=== PATIENT | female | born 1975 | race Asian ===

== ENCOUNTER → 2017-01-06 | Outpatient (CLI) | payer BC | END | disposition home or self-care (01) | LOC: C.PAPS 09:10 | PROVIDERS: ATTEND Obstetrics & Gynecology | DX: Z01.411 Encounter for gynecological examination (general) (routine) with abnormal findings (principal); R87.610 Atypical squamous cells of undetermined significance on cytologic smear of cervix (ASC-US) ==

== ENCOUNTER → 2017-01-06 | Outpatient (CLI) | payer BC, OTHER ==
[2017-01-06 17:52] LABS: PREG INTERNAL NEGATIVE QC NEG CLEAR BACKGROUND; PREG INTERNAL POSITIVE QC POS CONTROL LINE
== END | disposition home or self-care (01) ==
LOC: C.LABSPEC 11:46
PROVIDERS: ATTEND Obstetrics & Gynecology
DX: N91.5 Oligomenorrhea, unspecified (principal); E28.2 Polycystic ovarian syndrome

== ENCOUNTER → 2018-01-11 | Outpatient (CLI) | payer OTHER | END | disposition home or self-care (01) | LOC: C.PAPS 16:51 | PROVIDERS: ATTEND Obstetrics & Gynecology | DX: Z01.419 Encounter for gynecological examination (general) (routine) without abnormal findings (principal) ==

== ENCOUNTER 2024-05-18 10:37 | Inpatient (IN) ==
[2024-05-18 12:02] LABS: Basophils # (auto) 0.03 K/uL (0.00-0.20); Basophils % (auto) 0.5 %; Eosinophils # (auto) 0.05 K/uL (0.00-0.50); Eosinophils % (auto) 0.8 %; Hematocrit (blood only) 35.6 % (37.0-47.0); Hemoglobin 12.1 g/dl (12.0-16.0); Immature Granulocytes # (auto) 0.02 K/uL (0.01-0.20); Immature Granulocytes % (auto) 0.3 %; Lymphocytes # (auto) 1.61 K/uL (1.20-3.40); Lymphocytes % (auto) 24.2 %; Mean Corpuscular Hemoglobin 28.7 pg (25.0-34.0); Mean Corpuscular Volume 84.4 fL (80.0-100.0); Mean Platelet Volume 10.7 fL (9.4-12.4); Monocytes # (auto) 0.33 K/uL (0.11-0.59); Neutrophils # (auto) 4.62 K/uL (1.40-6.50); Neutrophils % (auto) 69.2 %; Platelet Count 298 K/uL (130-400); RDW Standard Deviation 36.2 fL (36.4-46.3); Red Blood Count 4.22 M/uL (4.20-5.40); White Blood Count 6.66 K/ul (4.8-10.8)
[2024-05-18 12:22] LABS: Albumin Globulin Ratio 1.3 (0.9-2); Albumin Level 4.3 gm/dl (3.4-5.0); BUN Creatinine Ratio 23.6 (10-20); Bilirubin,Total 0.5 mg/dl (0.2-1.0); Calcium 9.5 mg/dl (8.6-10.3); Creatinine Clr Calc Pharmacy 111.5 ml/min; Est GFR (African American) 130.4 ml/min; Est GFR (Non-African American) 112.5 ml/min; Globulin 3.3 gm/dl (2.5-4.0); Potassium 4.1 mmol/L (3.5-5.1); Total Protein 7.6 gm/dl (6.0-8.3)
[2024-05-18 12:23] LABS: Prothrombin Time 10.9 Seconds (9.0-12.0)
--- NOTE | 2024-05-18 13:21 | Ultrasound Report ---
US venous doppler LE RT CLINICAL HISTORY: Leg deep vein thrombosis (DVT) suspected TECHNIQUE: Right lower extremity real-time compression venous ultrasound with Color Doppler imaging. Utilizing real-time ultrasonic imaging multiple real time high-resolution ultrasonic images with comp ression and noncompression maneuvers of the deep venous system in addition to color doppler imaging w ere performed from the common femoral vein through the proximal calf veins. COMPARISON: None available at the time of this dictation. FINDINGS/IMPRESSION: Currently there is normal compressibility of the deep venous system from the common femoral vein thro ugh the proximal calf veins. No superficial venous thrombosis is identified. ACT 112: Negative or not required by law. Electronically signed by: Torres Malik M.D. 05/18/2024 1:19 PM
[2024-05-18] MEDS: OPTIRAY 320 125ml IV ONE (13:50)
--- NOTE | 2024-05-18 14:18 | CT Scan Report ---
CT ANGIOGRAM OF THE CHEST CLINICAL HISTORY: Dyspnea. Calf pain. Recent surgery. Clinical concern for pulmonary embolus. COMPARISON STUDY: Chest x-ray dated 01/04/2022. Chest CT dated 12/14/2019 TECHNIQUE: Following the IV administration of 112 cc of Optiray 320, CT angiogram of the chest was pe rformed from the upper abdomen to the thoracic inlet utilizing the pulmonary embolus protocol. Images are reviewed in the axial, sagittal, and coronal planes. 3-D MIPS images are created and assessed. I V contrast was administered without complication. A dose lowering technique was utilized adhering to the principles of ALARA. CT DOSE: 750.02 mGy.cm FINDINGS: Thyroid: Imaged portions of the thyroid gland are normal in size and attenuation. Thoracic aorta: The thoracic aorta is normal in caliber and demonstrates standard 3-vessel arch anato my. No dissection is seen. Pulmonary vasculature: The pulmonary trunk is normal in caliber. There is a subsegmental pulmonary em bolus within a branch of the right middle lobe pulmonary artery. This is best seen on image #97. Ther e is also segmental and subsegmental pulmonary embolus with a branch of the right upper lobe pulmonar y artery seen on image #122. Question a small pulmonary embolus versus artifact within a segmental br anch of the left lower lobe pulmonary artery on image #78. The central pulmonary vessels are clear. Heart: The heart is normal in size and without pericardial effusion. Lungs and pleural spaces: There are trace pleural effusions. No airspace consolidation is seen typica l for pneumonia. The trachea and central airways are clear. Mediastinum: There is no mediastinal lymphadenopathy. Tami: Clear. Axillae: There is no axillary lymphadenopathy. Upper abdomen: Partially visualized upper abdominal viscera is within normal limits. Skeletal structures: No lytic or blastic bony lesions are seen. IMPRESSION: 1. Segmental and subsegmental pulmonary emboli are seen within branches of the right upper and right middle lobe pulmonary arteries. There may also be a small peripheral pulmonary embolus within the lef t lower lobe pulmonary artery. 2. Trace pleural effusions. 3. Additional findings as above. ACT 112: Negative or not required by law. Electronically signed by: Juan R Kinciad M.D. 05/18/2024 2:16 PM
[2024-05-18] MEDS: GLYCERIN ADULT 12 SUPP/BOX SUPP PR ONE (14:25)
[2024-05-18] MEDS: SODIUM CHLORIDE 0.9% 1,000 ML IV SCH (14:29)
[2024-05-18 15:20] LABS: Troponin I High Sensitivity 5.1 pg/ml (0-14)
--- NOTE | 2024-05-18 16:29 | Emergency Department Note ---
Impression & Plan ARANA (dyspnea on exertion), Right calf pain, Pulmonary embolism ED Provider Note ED Provider Note NAME: ROBERT HENRY AGE:48 SEX: Female : 1975 ARRIVES VIA: Private INFORMANT: Patient ED PROVIDER(s): Kori Egan DO CHIEF COMPLAINT: Calf pain HPI: This is a 48-year-old female presents emerged part due to concern for 2 to 3 days of calf pain. Patient postop from a surgery for endometriosis on Tuesday. She states she did call the office due to concern and was told to come in here for additional evaluation. She also noticed low-grade fever, increased shortness of breath with exertion and slight chest tightness. She denies nausea or vomiting, drainage or bleeding from her wounds, or difficulty urinating. She states she has been constipated additionally and has taken several [id number] things for this. She denies any leg swelling. She states her right calf is worse than the left which no longer hurts. PAST MEDICAL HISTORY:See Below PAST SURGICAL HISTORY:See Below FAMILY HISTORY:See Below SOCIAL HISTORY:See Below HOME MEDICATIONS:See Below ALLERGIES:See Below VITALS:See Below PHYSICAL EXAMINATION: GENERAL: alert, well appearing, well nourished, no distress, non-toxic EYE EXAM: normal conjunctiva, PERRL and EOM's grossly intact OROPHARYNX: no exudate, no erythema, lips, buccal mucosa, and tongue normal and mucous membranes are moist NECK: supple, no nuchal rigidity, no adenopathy, non-tender LUNGS: Clear to auscultation. Normal chest wall mechanics, no w/r/r HEART: no murmurs, S1 normal and S2 normal ABDOMEN: abdomen soft, normo-active bowel sounds, no masses, no rebound or guarding. Tenderness with palpation generally, 3 incisions well-appearing, dressing was removed off of two, the infraumbilical dressing left intact SKIN: no rashes, petechiae, orbruising UPPER EXTREMITIES: upper extremities are grossly normal. FROM, nml pulses b/l. LOWER EXTREMITIES: No pitting edema. FROM, nml pulses b/l. No palpable mass or tenderness. NEURO EXAM: Normal sensorium, cranial nerves II-XII grossly intact, normal speech, no facial droop,nogross weakness of arms, no gross weakness of legs. Gross sensation intact. No ataxia. Vital Signs: reviewed and remarkable Differential Diagnosis: DVT, PE, constipation, dehydration, electrolyte abnormality, medication ADR, lymphedema, muscle strain, sprain, as well as others were considered MEDICAL DECISION MAKING: This is a 48-year-old female who presents emergency department due to concern for calf pain. Patient was surgery on Tuesday at an outside facility. She was afebrile vital signs stable. Labs drawn and sent, IV established, EKG performed at bedside interpreted me and patient monitored on telemetry. She was initially sent for an ultrasound to rule out DVT. This was negative. Upon further discussion with the patient she admits to shortness of breath over the last several days also particularly with exertion and intermittent sense of chest tightness. She is also been struggling with constipation and this initial postop period. A glycerin suppository was added and patient was sent for CT angiography of the chest to rule out PE, unfortunately this revealed multiple bilateral PEs. Patient was not overtly hypoxic, no respiratory distress, not tachycardic. Troponin and EKG added and were reassuring. I did contact the patient's gynecologic minimally invasive surgeon and speak with him directly regarding these initial findings/complications. He feels risk in the immediate postop period is minimal and is in agreement with plan for initiation of anticoagulation. Case discussed with hospitalist team for additional evaluation and management. First dose of Lovenox ordered on the patient. Consultation(s): 1532: Discussed with Dr. Stein, manager operating [facility], through [facility]. He feels minimal risk with initiation of anticoagulation. States surgery was robotic with bilateral salpingectomy and left oophorectomy with removal of an endometrioma. He has no preference in the immediate postop period for anticoagulation. He states he can be contacted via his cell phone with any questions at [phone]. 1635: Discussed with Dr. Esquivel, [facility] hospitalist team for additional evaluation and management. ER Treatment Provided: See below Diagnostics Interpreted By Me: -ECG: Normal sinus at 75, normal axis, normal intervals, isolated inverted T wave in lead III, no other acute ischemic change -Cardiac Monitoring: An order was placed for continuous cardiac monitoring. The monitor shows a rate of 75 with normal sinus rhythm. -Laboratory studies: As stated above and show below. -Imaging studies: US LE: no dvt Triage Nursing Note Reviewed Prior/Outside Records Reviewed Past Med/Surg History Problem List (Updated 05/18/24 @ 17:48 by Tisha Esquivel MD) Constipation Pulmonary embolism (Acute) Right calf pain (Acute) ARANA (dyspnea on exertion) (Acute) HTN (hypertension) Sinus infection Left elbow tendinitis Trigger ring finger of left hand LFTs abnormal GERD (gastroesophageal reflux disease) Encounter for health maintenance examination Anxiety (Acute) Low back pain Right carpal tunnel syndrome (Acute) Polycystic ovarian syndrome (Acute) Isolated lactose deficiency (Acute) Insulin resistance syndrome (Acute) Hyperlipidemia (Acute) Allergic sinusitis Cervical rib (Acute) Joint stiffness of spine (Acute) Neck pain (Acute) Rectal polyp (Acute) Spondylolisthesis, acquired (Acute) Medical History Fluctuating blood pressure Insect bite Sebaceous cyst of left axilla Situational stress Sinusitis, maxillary, chronic Sinus headache Digestive problems Varicella Vulvar abscess 09/14/18 Oligomenorrhea 01/06/17 ARANA (dyspnea on exertion) Chest tightness Chest pain Surgical History H/O endoscopy H/O colonoscopy H/O oral surgery Family History Aunt Breast cancer Paternal Ovarian cancer Maternal Sister Endometriosis H/O: hysterectomy adenomyosis, fibroids Father Coronary heart disease Heart disease Lung disease Lung cancer Grandfather (Maternal) Myocardial infarction Mother Stroke Myocardial infarction covid related Other Diabetes Hypercholesterolemia Hypertension Denies family history of Colon cancer Prostate cancer Social History Smoking Status: Never smoker Do You Dip or Chew Tobacco: No; Hx Alcohol Use: Yes Alcohol Intake Frequency Comment: Once a week. 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 Feels Safe at Home: Yes Dental Care, Regularly: Yes Physical Activity Frequency: 3-4 Times per Week Physical Activity Frequency Comment: Aerobic conditioning, strength training, and stretching/oga/pilates Seatbelt Use: always Sunscreen Use: No Sexual Activity: has been sexually active within the last 12 months Assistive Devices: Glasses Allergies Allergies Allergy/AdvReac Type Severity Reaction Status Date / Time ragweed pollen Allergy Mild Unknown Verified 05/18/24 13:13 house dust Allergy Unknown Verified 05/18/24 13:13 nettle Allergy Unknown Verified 05/18/24 13:13 No Known Drug Allergies Allergy Unknown Verified 05/18/24 13:13 Home Meds Home Medications Medication Instructions Recorded Confirmed acetaminophen 500 mg tablet 1,000 mg PO Q8 PRN .Moderate pain 03/27/24 05/18/24 (Tylenol Extra Strength) lidocaine 4 % topical patch 1 patch topical DAILY PRN Pain 03/27/24 05/18/24 omeprazole 40 mg capsule,delayed 40 mg PO DAILY Acid Reflux 03/27/24 05/18/24 release famotidine 40 mg tablet 40 mg PO HS PRN .heartburn 05/18/24 05/18/24 meloxicam 15 mg tablet 15 mg PO DAILY 05/18/24 05/18/24 ondansetron HCl 4 mg tablet 4 mg PO Q8 PRN Nausea 05/18/24 05/18/24 sennosides 8.6 mg-docusate sodium 1 tab-cap PO BID 05/18/24 05/18/24 50 mg capsule Previous Rx's Medication Instructions Recorded metformin 500 mg tablet,extended 1,000 mg (2 x 500 mg) PO DAILY #60 01/05/24 release 24 hr tabs amlodipine 2.5 mg tablet 2.5 mg PO DAILY #90 tabs 01/10/24 norethindrone acetate 5 mg tablet 5 mg PO DAILY #30 tabs 05/04/24 Results & Data (ED) Vital Signs Vital Signs - 24 hr 05/18/24 11:07 05/18/24 14:00 05/18/24 15:27 Temperature 36.4 C L Temperature Source Temporal Artery Scan Pulse Rate 68 67 Pulse Rate [Apical] 67 Pulse Rate from SpO2 Sensor 67 Respiratory Rate 16 18 19 Respiratory Effort / Characteristics Non-Labored Non-Labored Respiratory Depth Normal Normal Blood Pressure 173/99 H 178/95 H Blood Pressure [Right Arm] 173/95 H Blood Pressure Mean 123 122 Blood Pressure Mean [Right Arm] 121 Pulse Oximetry 100 98 98 Oxygen Delivery Method Room Air Room Air Sepsis Recent Fever Within 48 Hours No Sepsis New/Unexplained Change in Mental Status No Sepsis Action Taken by Nursing No Action Required 05/18/24 15:36 05/18/24 16:00 05/18/24 16:12 Temperature Temperature Source Pulse Rate 67 66 63 Pulse Rate [Apical] Pulse Rate from SpO2 Sensor 69 64 Respiratory Rate 17 19 Respiratory Effort / Characteristics Respiratory Depth Blood Pressure 170/85 H 179/92 H Blood Pressure [Right Arm] Blood Pressure Mean 113 121 Blood Pressure Mean [Right Arm] Pulse Oximetry 100 98 Oxygen Delivery Method Sepsis Recent Fever Within 48 Hours Sepsis New/Unexplained Change in Mental Status Sepsis Action Taken by Nursing 05/18/24 16:21 05/18/24 16:45 05/18/24 17:06 Temperature Temperature Source Pulse Rate 76 73 70 Pulse Rate [Apical] Pulse Rate from SpO2 Sensor 74 75 70 Respiratory Rate 24 19 18 Respiratory Effort / Characteristics Respiratory Depth Blood Pressure 187/98 H Blood Pressure [Right Arm] Blood Pressure Mean 127 Blood Pressure Mean [Right Arm] Pulse Oximetry 98 99 99 Oxygen Delivery Method Sepsis Recent Fever Within 48 Hours Sepsis New/Unexplained Change in Mental Status Sepsis Action Taken by Nursing 05/18/24 17:30 05/18/24 17:30 Temperature Temperature Source Pulse Rate 67 Pulse Rate [Apical] Pulse Rate from SpO2 Sensor 68 Respiratory Rate 21 Respiratory Effort / Characteristics Respiratory Depth Blood Pressure 175/97 H 175/97 H Blood Pressure [Right Arm] Blood Pressure Mean 123 137 Blood Pressure Mean [Right Arm] Pulse Oximetry 98 Oxygen Delivery Method Sepsis Recent Fever Within 48 Hours Sepsis New/Unexplained Change in Mental Status Sepsis Action Taken by Nursing Laboratory Data 05/19/24 06:07 05/19/24 06:07 Lab Results 05/18/24 Range/Units 11:40 WBC 6.66 (4.8-10.8) K/ul RBC 4.22 (4.20-5.40) M/uL Hgb 12.1 (12.0-16.0) g/dl Hct 35.6 L (37.0-47.0) % MCV 84.4 (80.0-100.0) fL MCH 28.7 (25.0-34.0) pg MCHC 34.0 (32.0-36.0) g/dL RDW Std Deviation 36.2 L (36.4-46.3) fL RDW Coeff of Delgado 12.0 (11.5-14.5) % Plt Count 298 (130-400) K/uL MPV 10.7 (9.4-12.4) fL Immature Gran % (Auto) 0.3 % Neut % (Auto) 69.2 % Lymph % (Auto) 24.2 % Grainger % (Auto) 5.0 % Eos % (Auto) 0.8 % Baso % (Auto) 0.5 % Neut # (Auto) 4.62 (1.40-6.50) K/uL Lymph # (Auto) 1.61 (1.20-3.40) K/uL Grainger # (Auto) 0.33 (0.11-0.59) K/uL Eos # (Auto) 0.05 (0.00-0.50) K/uL Baso # (Auto) 0.03 (0.00-0.20) K/uL Immature Gran # (Auto) 0.02 (0.01-0.20) K/uL PT 10.9 (9.0-12.0) Seconds INR 1.0 (0.9-1.1) Sodium 141 (136-145) mmol/L Potassium 4.1 (3.5-5.1) mmol/L Chloride 109 H (98-107) mmol/L Carbon Dioxide 24 (21-32) mmol/L Anion Gap 8 (3-11) BUN 13 (6-23) mg/dl Creatinine 0.55 L (0.6-1.2) mg/dl Est Cr Clr Drug Dosing 111.5 ml/min Est GFR ( Amer) 130.4 ml/min Est GFR (Non-Af Amer) 112.5 ml/min BUN/Creatinine Ratio 23.6 H (10-20) Glucose 89 (70-99(Fasting)) mg/dl Calcium 9.5 (8.6-10.3) mg/dl Total Bilirubin 0.5 (0.2-1.0) mg/dl AST 20 (13-39) U/L ALT 32 (7-52) U/L Alkaline Phosphatase 42 (34-104) U/L Troponin I High Sens 5.1 (0-14) pg/ml Total Protein 7.6 (6.0-8.3) gm/dl Albumin 4.3 (3.4-5.0) gm/dl Globulin 3.3 (2.5-4.0) gm/dl Albumin/Globulin Ratio 1.3 (0.9-2) Administered Medications Acetaminophen (Acetaminophen 500 Mg Tab) 1,000 mg PO Q8 PRN PRN Reason: .Moderate pain Stop: 06/17/24 21:45 Last Admin: 05/18/24 22:16 Dose: 1,000 mg Documented By: PRIMITIVO Amlodipine Besylate (Amlodipine Besylate 5 Mg Tab) 2.5 mg PO DAILY [facility] Stop: 06/17/24 21:45 Last Admin: 05/19/24 07:52 Dose: 2.5 mg Documented By: Admin: 05/18/24 22:03 Dose: 2.5 mg Documented By: PRIMITIVO Famotidine (Famotidine 40 Mg Tablet) 40 mg PO HS PRN PRN Reason: .heartburn Stop: 06/17/24 21:45 Last Admin: 05/19/24 00:43 Dose: 40 mg Documented By: PRIMITIVO Hydralazine HCl (Hydralazine 10 Mg Tab) 10 mg PO TID PRN PRN Reason: for SBP>150 Stop: 06/17/24 20:59 Last Admin: 05/18/24 23:09 Dose: 10 mg Documented By: PRIMITIVO Pantoprazole Sodium (Pantoprazole 40 Mg Tab) 40 mg PO DAILY [facility] Stop: 06/18/24 08:59 Last Admin: 05/19/24 07:52 Dose: 40 mg Documented By: NEGRO Polyethylene Glycol (Polyethylene (Miralax) 17 Gm Pack) 17 gm PO BID [facility] Stop: 06/17/24 21:44 Last Admin: 05/19/24 07:52 Dose: 17 gm Documented By: Admin: 05/18/24 22:04 Dose: 17 gm Documented By: PRIMITIVO Senna/Docusate Sodium (Docusate Sodium/Senna 50/8.6mg Tab) 1 tab PO BID [facility] Stop: 06/18/24 08:59 Last Admin: 05/19/24 07:52 Dose: 1 tab Documented By: NEGRO Discontinued Medications Amlodipine Besylate (Amlodipine Besylate 5 Mg Tab) 5 mg PO NOW ONE Stop: 05/18/24 17:39 Last Admin: 05/18/24 19:40 Dose: 5 mg Documented By: ANNE Enoxaparin Sodium (Enoxaparin Inj 120 Mg/0.8 Ml Syr) 111 mg SQ NOW STA Stop: 05/18/24 16:46 Last Admin: 05/18/24 18:00 Dose: 111 mg Documented By: ODIN Glycerin (Glycerin Adult 12 Supp/Box Supp) 1 supp [place] NOW ONE Stop: 05/18/24 13:29 Last Admin: 05/18/24 14:25 Dose: 1 supp Documented By: ODIN Sodium Chloride (Nss) 1,000 mls @ 125 mls/hr IV .Q8H [facility] Stop: 06/17/24 13:29 Last Infusion: 05/18/24 21:47 Dose: Infused Documented By: Infusion: 05/18/24 18:38 Dose: 0 mls/hr Documented By: Admin: 05/18/24 14:29 Dose: 125 mls/hr Documented By: ODIN Lorazepam 0.5 mg/ Syringe 0.5 mls @ 2 mls/min IV NOW ONE Stop: 05/19/24 01:36 Last Admin: 05/19/24 01:45 Dose: 2 mls/min Documented By: PRIMITIVO Ioversol (Optiray 320 125ml) 112 ml IV ONCE ONE Stop: 05/18/24 13:51 Last Admin: 05/18/24 13:50 Dose: 112 ml Documented By: Imaging Data Radiologist's Impression: Venous Doppler Study 05/18/24 11:10 US venous doppler LE RT CLINICAL HISTORY: Leg deep vein thrombosis (DVT) suspected TECHNIQUE: Right lower extremity real-time compression venous ultrasound with Color Doppler imaging. Utilizing real-time ultrasonic imaging multiple real time high-resolution ultrasonic images with compression and noncompression maneuvers of the deep venous system in addition to color doppler imaging were performed from the common femoral vein through the proximal calf veins. COMPARISON: None available at the time of this dictation. FINDINGS/IMPRESSION: Currently there is normal compressibility of the deep venous system from the common femoral vein through the proximal calf veins. No superficial venous thrombosis is identified. ACT 112: Negative or not required by law. Electronically signed by: Torres Malik M.D. 05/18/2024 1:19 PM Chest CTA 05/18/24 13:30 CT ANGIOGRAM OF THE CHEST CLINICAL HISTORY: Dyspnea. Calf pain. Recent surgery. Clinical concern for pulmonary embolus. COMPARISON STUDY: Chest x-ray dated 01/04/2022. Chest CT dated 12/14/2019 TECHNIQUE: Following the IV administration of 112 cc of Optiray 320, CT angiogram of the chest was performed from the upper abdomen to the thoracic inlet utilizing the pulmonary embolus protocol. Images are reviewed in the axial, sagittal, and coronal planes. 3-D MIPS images are created and assessed. IV contrast was administered without complication. A dose lowering technique was utilized adhering to the principles of ALARA. CT DOSE: 750.02 mGy.cm FINDINGS: Thyroid: Imaged portions of the thyroid gland are normal in size and attenuation. Thoracic aorta: The thoracic aorta is normal in caliber and demonstrates standard 3-vessel arch anatomy. No dissection is seen. Pulmonary vasculature: The pulmonary trunk is normal in caliber. There is a subsegmental pulmonary embolus within a branch of the right middle lobe pulmonary artery. This is best seen on image #97. There is also segmental and subsegmental pulmonary embolus with a branch of the right upper lobe pulmonary artery seen on image #122. Question a small pulmonary embolus versus artifact within a segmental branch of the left lower lobe pulmonary artery on image #78. The central pulmonary vessels are clear. Heart: The heart is normal in size and without pericardial effusion. Lungs and pleural spaces: There are trace pleural effusions. No airspace consolidation is seen typical for pneumonia. The trachea and central airways are clear. Mediastinum: There is no mediastinal lymphadenopathy. Tami: Clear. Axillae: There is no axillary lymphadenopathy. Upper abdomen: Partially visualized upper abdominal viscera is within normal limits. Skeletal structures: No lytic or blastic bony lesions are seen. IMPRESSION: 1. Segmental and subsegmental pulmonary emboli are seen within branches of the right upper and right middle lobe pulmonary arteries. There may also be a small peripheral pulmonary embolus within the left lower lobe pulmonary artery. 2. Trace pleural effusions. 3. Additional findings as above. ACT 112: Negative or not required by law. Electronically signed by: Juan R Kincaid M.D. 05/18/2024 2:16 PM Discharge Plan Visit Data Chief Complaint: Referred by Doctor Stated Complaint: SURGERY TUESDAY, POSSIBLER BLOOD CLOT ED Provider: Kori Egan Discharge Problem: ARANA (dyspnea on exertion), Right calf pain, Pulmonary embolism Patient Disposition: Admitted As Inpatient
[2024-05-18] MEDS ORDERED: ENOXAPARIN 1.5 MG/KG SC STA (16:37)
--- NOTE | 2024-05-18 17:48 | History & Physical Report ---
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 She states she did call the office due to concern and was told to come in here for additional evaluation. She also noticed low-grade fever, increased shortness of breath with exertion and slight chest tightness. She denies nausea or vomiting, drainage or bleeding from her wounds, or difficulty urinating. She states she has been constipated additionally and has taken several [id number] things for this. She denies any leg swelling. She states her right calf is worse than the left which no longer hurts. CT of the chest Segmental and subsegmental pulmonary emboli are seen within branches of the right upper and right middle lobe pulmonary arteries. There may also be a small peripheral pulmonary embolus within the left lower lobe pulmonary artery, patient started on subcu Lovenox, no DVT in her legs , reports constipation, abdominal discomfort Allergies Allergy/AdvReac Type Severity Reaction Status Date / Time ragweed pollen Allergy Mild Unknown Verified 05/18/24 13:13 house dust Allergy Unknown Verified 05/18/24 13:13 nettle Allergy Unknown Verified 05/18/24 13:13 No Known Drug Allergies Allergy Unknown Verified 05/18/24 13:13 Home Medications Medication Instructions Recorded Confirmed Type metformin 500 mg tablet,extended 1,000 mg (2 x 500 mg) PO DAILY #60 01/05/24 05/18/24 Rx release 24 hr tabs amlodipine 2.5 mg tablet 2.5 mg PO DAILY #90 tabs 01/10/24 05/18/24 Rx acetaminophen 500 mg tablet 1,000 mg PO Q8 PRN .Moderate pain 03/27/24 05/18/24 History (Tylenol Extra Strength) lidocaine 4 % topical patch 1 patch topical DAILY PRN Pain 03/27/24 05/18/24 History omeprazole 40 mg capsule,delayed 40 mg PO DAILY Acid Reflux 03/27/24 05/18/24 History release norethindrone acetate 5 mg tablet 5 mg PO DAILY #30 tabs 05/04/24 05/18/24 Rx famotidine 40 mg tablet 40 mg PO HS PRN .heartburn 05/18/24 05/18/24 History meloxicam 15 mg tablet 15 mg PO DAILY 05/18/24 05/18/24 History ondansetron HCl 4 mg tablet 4 mg PO Q8 PRN Nausea 05/18/24 05/18/24 History sennosides 8.6 mg-docusate sodium 1 tab-cap PO BID 05/18/24 05/18/24 History 50 mg capsule Past Med/Surg History Problem List (Updated 05/18/24 @ 17:48 by Tisha Esquivel MD) Constipation Pulmonary embolism (Acute) Right calf pain (Acute) ARANA (dyspnea on exertion) (Acute) HTN (hypertension) Sinus infection Left elbow tendinitis Trigger ring finger of left hand LFTs abnormal GERD (gastroesophageal reflux disease) Encounter for health maintenance examination Anxiety (Acute) Low back pain Right carpal tunnel syndrome (Acute) Polycystic ovarian syndrome (Acute) Isolated lactose deficiency (Acute) Insulin resistance syndrome (Acute) Hyperlipidemia (Acute) Allergic sinusitis Cervical rib (Acute) Joint stiffness of spine (Acute) Neck pain (Acute) Rectal polyp (Acute) Spondylolisthesis, acquired (Acute) Medical History Fluctuating blood pressure Insect bite Sebaceous cyst of left axilla Situational stress Sinusitis, maxillary, chronic Sinus headache Digestive problems Varicella Vulvar abscess 09/14/18 Oligomenorrhea 01/06/17 ARANA (dyspnea on exertion) Chest tightness Chest pain Surgical History H/O endoscopy H/O colonoscopy H/O oral surgery Family History Aunt Breast cancer Paternal Ovarian cancer Maternal Sister Endometriosis H/O: hysterectomy adenomyosis, fibroids Father Coronary heart disease Heart disease Lung disease Lung cancer Grandfather (Maternal) Myocardial infarction Mother Stroke Myocardial infarction covid related Other Diabetes Hypercholesterolemia Hypertension Denies family history of Colon cancer Prostate cancer Social History Smoking Status: Never smoker Do You Dip or Chew Tobacco: No; Hx Alcohol Use: Yes Alcohol Intake Frequency Comment: Once a week. 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 [employer] Feels Safe at Home: Yes Dental Care, Regularly: Yes Physical Activity Frequency: 3-4 Times per Week Physical Activity Frequency Comment: Aerobic conditioning, strength training, and stretching/oga/pilates Seatbelt Use: always Sunscreen Use: No Sexual Activity: has been sexually active within the last 12 months Review of Systems Review of Systems: All systems reviewed & are unremarkable except as noted in Subjective Physical Exam Physical Exam: Head atraumatic normocephalic Neck supple Chest clear to auscultation bilateral Heart regular no murmurs gallops or rubs appreciated Abdomen soft, nondistended , tender generalized, several incisions after laparoscopic surgery Extremities right calf tenderness, no swelling Neuro alert awake oriented x 3 Results & Data Results & Data Vital Signs (Past 12 Hours) Vital Signs Temp Pulse Pulse Resp BP BP Pulse Ox 05/18/24 16:45 73 19 187/98 H 99 05/18/24 16:21 76 24 98 05/18/24 16:12 63 05/18/24 16:00 66 19 179/92 H 98 05/18/24 15:36 67 17 170/85 H 100 05/18/24 15:27 67 19 178/95 H 98 05/18/24 14:00 67 18 173/95 H 98 05/18/24 11:07 36.4 C L 68 16 173/99 H 100 O2 Del Method 05/18/24 16:45 05/18/24 16:21 05/18/24 16:12 05/18/24 16:00 05/18/24 15:36 05/18/24 15:27 05/18/24 14:00 Room Air 05/18/24 11:07 Room Air PG Care Time/CCT Total # of Minutes Spent Total Time Spent with Patient: Total time spent is greater than 50% in coordination of care (as documented) at patient's floor/unit and/or counseling patient: Coding Level of Care Code 11521 INT INP/OBS CARE 75MIN Diagnoses Pulmonary embolism I26.99 HTN (hypertension) I10 GERD (gastroesophageal reflux disease) K21.9 Constipation K59.00
[2024-05-18] MEDS: ENOXAPARIN INJ 120 MG/0.8 ML SYR SQ STA (18:00)
[2024-05-18] MEDS: amLODIPine BESYLATE 5 MG TAB PO ONE (19:40)
[2024-05-18 19:55] LABS: BUN Creatinine Ratio 18.9 (10-20); Calcium 9.3 mg/dl (8.6-10.3); Creatinine Clr Calc Pharmacy 115.7 ml/min; Est GFR (Non-African American) 113.9 ml/min; Potassium 3.7 mmol/L (3.5-5.1)
[2024-05-18] MEDS: amLODIPine BESYLATE 5 MG TAB PO SCH (22:03)
[2024-05-18] MEDS: POLYETHYLENE (MIRALAX) 17 GM PACK PO SCH (22:04)
[2024-05-18] MEDS: ACETAMINOPHEN 500 MG TAB PO PRN (22:16)
[2024-05-18] MEDS: hydrALAZINE 10 MG TAB PO PRN (23:09)
[2024-05-18 23:21] LABS: Basophils # (auto) 0.03 K/uL (0.00-0.20); Basophils % (auto) 0.4 %; Eosinophils # (auto) 0.02 K/uL (0.00-0.50); Eosinophils % (auto) 0.2 %; Hematocrit (blood only) 34.6 % (37.0-47.0); Hemoglobin 11.8 g/dl (12.0-16.0); Immature Granulocytes # (auto) 0.02 K/uL (0.01-0.20); Immature Granulocytes % (auto) 0.2 %; Lymphocytes # (auto) 1.67 K/uL (1.20-3.40); Lymphocytes % (auto) 20.2 %; Mean Corpuscular Hemoglobin 29.1 pg (25.0-34.0); Mean Corpuscular Hgb Conc 34.1 g/dL (32.0-36.0); Mean Corpuscular Volume 85.2 fL (80.0-100.0); Mean Platelet Volume 10.5 fL (9.4-12.4); Monocytes # (auto) 0.37 K/uL (0.11-0.59); Monocytes % (auto) 4.5 %; Neutrophils # (auto) 6.15 K/uL (1.40-6.50); Neutrophils % (auto) 74.5 %; Platelet Count 281 K/uL (130-400); RDW Coefficient of Variation 11.8 % (11.5-14.5); Red Blood Count 4.06 M/uL (4.20-5.40); White Blood Count 8.26 K/ul (4.8-10.8)
[2024-05-19] MEDS: FAMOTIDINE 40 MG TABLET PO PRN (00:43)
[2024-05-19] MEDS: LORazepam 0.5 MG in SYRINGE 0.25 ML IV ONE (01:45)
[2024-05-19 07:00] LABS: Basophils # (auto) 0.02 K/uL (0.00-0.20); Basophils % (auto) 0.3 %; Eosinophils # (auto) 0.03 K/uL (0.00-0.50); Eosinophils % (auto) 0.5 %; Hemoglobin 11.8 g/dl (12.0-16.0); Immature Granulocytes # (auto) 0.02 K/uL (0.01-0.20); Immature Granulocytes % (auto) 0.3 %; Lymphocytes # (auto) 1.97 K/uL (1.20-3.40); Lymphocytes % (auto) 29.8 %; Mean Corpuscular Hemoglobin 29.1 pg (25.0-34.0); Mean Corpuscular Hgb Conc 34.7 g/dL (32.0-36.0); Mean Platelet Volume 10.6 fL (9.4-12.4); Monocytes # (auto) 0.32 K/uL (0.11-0.59); Monocytes % (auto) 4.8 %; Neutrophils # (auto) 4.25 K/uL (1.40-6.50); Neutrophils % (auto) 64.3 %; Platelet Count 290 K/uL (130-400); RDW Coefficient of Variation 11.9 % (11.5-14.5); RDW Standard Deviation 35.5 fL (36.4-46.3); Red Blood Count 4.05 M/uL (4.20-5.40); White Blood Count 6.61 K/ul (4.8-10.8)
[2024-05-19 07:29] LABS: BUN Creatinine Ratio 16.7 (10-20); Calcium 9.2 mg/dl (8.6-10.3); Est GFR (African American) 136.3 ml/min; Est GFR (Non-African American) 117.6 ml/min; Potassium 3.5 mmol/L (3.5-5.1)
[2024-05-19] MEDS: DOCUSATE SODIUM/SENNA 50/8.6MG TAB PO SCH (07:52)
[2024-05-19] MEDS: PANTOprazole 40 MG TAB PO SCH (07:52)
--- NOTE | 2024-05-19 07:52 | Electrocardiogram Report ---
Test Reason : Blood Pressure : / mmHG Vent. Rate : 075 BPM Atrial Rate : 075 BPM P-R Int : 142 ms QRS Dur : 068 ms QT Int : 390 ms P-R-T Axes : 040 060 009 degrees QTc Int : 435 ms Normal sinus rhythm with sinus arrhythmia Nonspecific T wave abnormality When compared with ECG of 04-JAN-2022 11:31, No significant change was found Confirmed by Erwin Forbes ([id number]) on 05/19/2024 7:52:23 AM Referred By: REFERRED SELF Confirmed By:Erwin Forbes
--- NOTE | 2024-05-19 12:31 | Hospitalist Progress Note ---
Date of Service May 19, 2024 Assessment & Plan (1) Pulmonary embolism: (2) HTN (hypertension): (3) GERD (gastroesophageal reflux disease): (4) Constipation: Plan Patient is a 48 y/o female with PMHx of HTN, Endometriosis, and recent laparoscopic surgery to remove endometrioma and b/l salpingectomy on 05/14/24 who was admitted due to SOB that began on Tuesday (05/16/24) that was later found to be related to PE. Pulmonary Embolism - Chest CTA on admission showed segmental and subsegmental pulmonary emboli are seen within branches of the right upper and right middle lobe pulmonary arteries, as well as possible small peripheral pulmonary embolus within the left lower lobe pulmonary artery. - Right LE US with no DVT or superficial venous thrombosis - TTE completed and report pending - Consider likely that PE came as a consequence to recent surgery and Progesterone use - Lovenox 70 mg SQ BID started lat night and patient tolerated well - Patient currently at room air and O2 sats appropriate - Continue to hold progesterone - Dc Lovenox and start Eliquis 10 mg bid PO today for a duration of 7 days, then change to 5 mg bid Duration of therapy: 3 months HTN - Patient BP controlled at home on Amlodipine 2.5 mg daily - BP elevated during admission - s/p total dose of 7.5 mg last night + Hydralazine 10mg x1 with successful decrease in BP, but still elevated - Will increase Amlodipine to 5mg and monitor BP Constipation - Hx of chronic constipation made worse by recent surgery - Will add Miralax tid and Senokot as management - Will add Simethicone for gas pain GERD - Continue Protonix FEN: None VTE ppx: Eliquis Diet: Low sodium Dispo: Discharge back home with close PCP f/u after 24 hr monitoring post- initiation of blood thinners and BP is controlled; repeat CBC in 1-2 days after dh Code status: FULL Admission and Anticipated Discharge Date Admission Date: May 18, 2024 Supervising Physician Co-Signing Physician Notes Attending attestation Pt seen and examined in concert with Dr. Lucas. In agreement with the documented findings as noted in the resident documentation with any exceptions or additions as noted here. Generally improved shortness of breath and fatigue while walking compared to prior to admission. On examination, S1/S2 nl RRR no MCG. CTAB. Abd NT/ND BS+ve Pulmonary embolism, likely provoked - transition to apixiaban with precautions re: worsening bleeding and similar. Follow up echocardiogram. Constipation - escalate bowel regimen to 1 BM per day Hypertension - likely correlated with anxiety, pain, postoperative state. Monitor and consider increase amlodipine to 5mg w/ persistently elevated SBP ~170 Else see resident documentation as noted. Subjective Patient with improvement in SOB but does note it some with prolonged conversation or when walking around the floor. Has some chest pain that seems to be intermittent and positional. Endorses discomfort from constipation and gas accumulation which has been occurring since after her surgery on Tuesday (05/14/24). Denies family or personal history of clotting disorder. Has been taking progesterone since before her procedure to stop her menstrual cycles in preparation for her surgery, by [employer] Practitioner recs. No other concerns. Review of Systems Review of Systems: As per HPI. Physical Exam Physical Exam: GENERAL: AAOx3, afebrile, calm, NAD CARDIO: RRR, no r/m/g RESPIRATORY: CTA b/l, no wheezing or crackles, breathing at room air, no pleurisy, normal respiratory effort, no respiratory distress GI: soft, mild distension, mildly tender around surgical wounds, small surgical wounds in umbilicus and bilateral lower quadrants that are well healing and without surrounding erythema or active bleeding or exudates EXTREMITIES: no swelling in b/l LE, mild tenderness in b/l calves R>>L Results & Data Results & Data Vital Signs (Past 12 Hours) Vital Signs Temp Pulse Pulse Resp BP BP Pulse Ox 05/19/24 11:13 36.7 C 88 16 155/90 H 98 05/19/24 07:50 05/19/24 07:42 36.9 C 95 H 165/92 H 97 05/19/24 07:00 79 05/19/24 02:39 37.1 C 81 16 152/84 H 97 05/19/24 01:11 75 164/96 H 05/19/24 00:53 36.6 C 79 18 168/91 H 97 O2 Del Method 05/19/24 11:13 Room Air 05/19/24 07:50 Room Air 05/19/24 07:42 Room Air 05/19/24 07:00 05/19/24 02:39 Room Air 05/19/24 01:11 05/19/24 00:53 Room Air Resident Activity Tracking Resident Involvement: Resident Care Provided Care Provided: Adult Hospital Medicine
[2024-05-19] MEDS: POLYETHYLENE (MIRALAX) 17 GM PACK PO SCH (13:17)
[2024-05-19] MEDS: ONDANSETRON 4 MG OD TAB PO PRN (13:56)
--- NOTE | 2024-05-19 15:42 | XCELERA ---
[id number]
[2024-05-19] MEDS: SIMETHICONE 80 MG CHEW PO PRN (15:47)
[2024-05-19] MEDS ORDERED: ENOXAPARIN 80 MG/0.8 ML SYR SQ SCH (18:00)
[2024-05-19] MEDS: APIXABAN 5 MG TABLET PO SCH (20:42)
[2024-05-20] MEDS: LORazepam 0.5 MG TAB PO ONE (00:21)
[2024-05-20 06:14] LABS: Hematocrit (blood only) 37.1 % (37.0-47.0); Hemoglobin 12.6 g/dl (12.0-16.0); Mean Corpuscular Volume 85.3 fL (80.0-100.0); Mean Platelet Volume 10.5 fL (9.4-12.4); Platelet Count 304 K/uL (130-400); RDW Standard Deviation 36.7 fL (36.4-46.3); Red Blood Count 4.35 M/uL (4.20-5.40); White Blood Count 6.86 K/ul (4.8-10.8)
[2024-05-20 06:49] LABS: BUN Creatinine Ratio 25.8 (10-20); Calcium 9.4 mg/dl (8.6-10.3); Creatinine Clr Calc Pharmacy 97.3 ml/min; Est GFR (African American) 125.3 ml/min; Est GFR (Non-African American) 108.1 ml/min; Potassium 3.9 mmol/L (3.5-5.1)
[2024-05-20] MEDS: amLODIPine BESYLATE 5 MG TAB PO SCH (07:20)
[2024-05-20 10:16] LABS: Appearance Urine Cloudy (Clear); Bacteria Urine Automated None Seen (None Seen); Bilirubin Urine Negative (Negative); Blood Urine 3+ (Negative); Cast Urine Automated 0-2 /lpf (0-2); Color Urine Red; Epithelial Cell Urine Auto 0-2 /hpf (0-2); Glucose Urine UA Negative (Negative); Ketones Urine Negative (Negative); Leukocyte Esterase Urine 1+ (Negative); Nitrite Urine Negative (Negative); Protein Urine 2+ (Negative); RBC Urine Automated >20 /hpf (0-2); Specific Gravity Urine 1.011 (1.000-1.030); Urobilinogen Urine Negative (Negative); pH Urine 5.5 (4.5-7.5)
--- NOTE | 2024-05-20 10:21 | Discharge Summary ---
Date of Service May 20, 2024 Admission HPI Per Admitting Provider 48-year-old female with history of hypertension, presents to ER with shortness of breath started on Tuesday, patient postop from a surgery for endometriosis on Tuesday. She states she did call the office due to concern and was told to come in here for additional evaluation. She also noticed low-grade fever, increased shortness of breath with exertion and slight chest tightness. She denies nausea or vomiting, drainage or bleeding from her wounds, or difficulty urinating. She states she has been constipated additionally and has taken several ezco-jmy-lcgmebw things for this. She denies any leg swelling. She states her right calf is worse than the left which no longer hurts. CT of the chest Segmental and subsegmental pulmonary emboli are seen within branches of the right upper and right middle lobe pulmonary arteries. There may also be a small peripheral pulmonary embolus within the left lower lobe pulmonary artery, patient started on subcu Lovenox, no DVT in her legs , reports constipation, abdominal discomfort Admission Exam Per Admitting Provider Head atraumatic normocephalic Neck supple Chest clear to auscultation bilateral Heart regular no murmurs gallops or rubs appreciated Abdomen soft, nondistended , tender generalized, several incisions after laparoscopic surgery Extremities right calf tenderness, no swelling Neuro alert awake oriented x 3 Principal Diagnosis Pulmonary Embolism Discharge Exam GENERAL: AAOx3, afebrile, calm, NAD CARDIO: RRR, no r/m/g RESPIRATORY: CTA b/l, no wheezing or crackles, breathing at room air, no pleurisy, normal respiratory effort, no respiratory distress GI: soft, mild distension, tenderness to palpation in bilateral lower quadrants and suprapubic region, well-healing surgical wounds without active bleeding or suppuration EXTREMITIES: no swelling in b/l LE, mild tenderness in right calf, no tenderness in left calf Discharge Data Allergies Allergy/AdvReac Type Severity Reaction Status Date / Time ragweed pollen Allergy Mild Unknown Verified 05/18/24 13:13 house dust Allergy Unknown Verified 05/18/24 13:13 nettle Allergy Unknown Verified 05/18/24 13:13 No Known Drug Allergies Allergy Unknown Verified 05/18/24 13:13 Consultations 05/18/24 16:38 ED Decision to Admit Stat Ordered Studies 05/18/24 11:10 US venous doppler LE RT Urgent 05/18/24 13:30 CT angio chest PE protocol Stat Hospital Course (1) Pulmonary embolism: (2) HTN (hypertension): (3) GERD (gastroesophageal reflux disease): (4) Constipation: Plan Patient is a 48 y/o female with PMHx of HTN, Endometriosis, and recent laparoscopic surgery to remove endometrioma and b/l salpingectomy on 05/14/24 who was admitted due to SOB that began on Tuesday (05/16/24) that was later found to be related to PE. Pulmonary Embolism -- Acute, stable - PE noted on chest CTA at time of admission - Right LE US with no DVT or superficial venous thrombosis - TTE (05/19/24): Normal LV size with hyperdynamic systolic function (EF>70%), no regional wall motion abnormalities, normal RV pressure and systolic function, no significant valvular abnormalities - Consider likely that PE came as a consequence to recent surgery and Progesterone use - Patient currently at room air and O2 sats appropriate. - Hgb stable after initiation of Eliquis (11.8 --> 12.6) - Continue Eliquis 10 mg bid PO for 6 more days after discharge, then change to 5 mg bid until 3 months of therapy are completed - Ordered CBC to be done on 05/21/24 or 05/22/24 to assess Hgb now that menstrual cycle seems to be returning, and encourage close f/u with PCP next week for post-discharge evaluation - Continue to hold progesterone. Patient advised to call PCP or parts product analyst if menstrual bleed worsens or if she develops sxs of anemia for CBC and reassess risk versus benefit of restarting Progesterone Lower abdominal/Pelvic pain - Patient referring vaginal bleeding with cramping sensation in lower abdomen - Since patient stopped progesterone on Tuesday (05/18/24), consider possible her menstrual cycles may be returning - Pain could also be related to constipation versus UTI - U/A with +1 leukocyte esterase but no Nitrites or Bacteria - Will hold on antibiotics at this time and wait for culture results. If bacteria grows, will contact patient to start antibiotic if indicated HTN -- Chronic, stable - Patient BP controlled at home on Amlodipine 2.5 mg daily - BP elevated during admission - BP improved with increase in Amlodipine dose to 5 mg. May continue this dose after discharge Constipation -- Chronic, stable - Hx of chronic constipation made worse by recent surgery - Had some bm earlier today but not very large and patient straining - Encouraged patient to continue home Senokot and use daily Miralax and increase frequency of the latter until bm regular GERD -- Chronic, stable - Continue Protonix Patient found stable and fit to be discharged today. Total Time Total Time Spent Total Time Spent (In Minutes): As per attending attestation. Discharge Plan Discharge Items Patient Disposition: Home - Self-Care Reason For Visit: PE Discharge Diagnosis: Pulmonary Embolism (PE) Activity: Per Instructions section Non-emergency contact: Primary Care Provider and Catering Administrative Assistant Call non-emergency contact if: your symptoms worsen and your temperature is above 101 Follow-up/Referrals: Abdirahman Miller MD [Primary Care Provider] - Diet: Low Sodium (2gm) Ambulatory Orders: Complete Blood Count no Diff (Timed) Timeframe: 1 Day Location: Determined by Patient Ordered By: Liz Panda Attending Provider Instructions: You were admitted due to shortness of breath that was found to be related to a blood clot in your lungs. We gave you blood thinners to prevent further formation of blood clots in your lungs while your body breaks down the ones you have in your lungs at the moment. Since your breathing has returned to your usual state and your oxygen levels are normal while breathing at room air, we will be discharging you today. We started Eliquis 10 mg which you should take two times a day for 6 more days. After you complete these 6 days, you will decrease your Eliquis dose to 5 mg two times a day until you complete 3 months of treatment. A possible side effect of this medication is increased risk for bleeding. We advise you to call your primary care provider if you notice excessive bleeding (e.g. menstrual bleeding) or if you start to feel increasing fatigue, weakness, lightheadedness, or shortness of breath. We will continue to hold your Progesterone due to your current pulmonary embolism. However, if you experience increased vaginal bleeding with your menstruation or if you experience the symptoms mentioned above, we strongly advise you to speak with your primary care provider to reassess your blood count and discuss the next steps. While you are taking Eliquis, we recommend you do not use NSAIDs such as Ibuprofen, Aspirin, Meloxicam due to increased risk of bleeding. For pain control, we advise you use Tylenol (Acetaminophen) 1000 mg every 8 hours unless otherwise indicated by your primary care provider. We have sent an order for a repeat CBC to be done on Tuesday (05/21/24) or Tuesday (05/22/24) to see what your blood count looks and make sure it does not decrease significantly. We encourage you to see your primary care provider at some point this coming week for post-discharge evaluation and to discuss your CBC and next steps (e.g. follow up). Please also make sure to follow up with your Apartment Maintenance Worker for follow up. We have ordered a Urinalysis due to cramping sensation that began today. This study showed some signs that may suggest infection, but not for certain. Due to this in combination with the possibility that your cramping plus your vaginal bleeding could be a sign of your menstrual cycles re-starting, we will be not be starting an antibiotic today and instead wait for the urine cultures to result and tell us if there actually is a bacteria growing in your urine, and if there is, start an antibiotic then. If the culture grows something, I will be contacting you with recommendations on next steps or your primary care provider may discuss them with you and give recommendations. A discharge summary will be sent to your primary care physician to ensure continuity of care. Please bring this discharge summary with you to your next office appointment so that your provider can review it at that time. Follow-up appointments: Make a follow-up appointment with your PCP within the next week. It is very i mportant that you follow up with them shortly after discharge from the hospital. Keep all your follow-up appointments as already scheduled. If you cannot make an appointment, notify your provider. Medications: Your medication list has been reviewed and reconciled upon discharge to ensure accuracy and continuity of care. An updated list of all your medications is included with your hospital discharge paperwork. Please review this list closely, and make note of any changes. If you have any issues filling these prescriptions, please call [phone] and ask to leave a message for Dr. Lucas. Take your medications as instructed; do not skip a dose of your medicines. Make sure all of your doctors know every medicine you are taking (including gcwe-crw-airkrrl medicines, vitamins, and supplements). Call your primary care provider before taking any new medicines (including over- the-counter medicines, vitamins, and supplements), because some of these may interact with your current medications, or may make your symptoms worse. Tell your primary care provider if you cannot afford your medications. CONTACT YOUR PRIMARY CARE PROVIDER if you experience any of the following: Worsening of symptoms Fever, chills, or fatigue Difficulty following your treatment plan, or difficulty taking medications CALL 911 OR GO TO THE EMERGENCY DEPARTMENT if you experience any of the following: Sudden, severe abdominal pain or nausea/vomiting Severe chest pain, or chest pain that radiates (moves) to your jaw or arm Sudden, severe shortness of breath or difficulty breathing Thank you for allowing us to participate in your care. Pending Studies at Discharge: No Stand-Alone Forms: My [facility] [employer], Smoking Cessation Medications and DC Order Prescriptions: New Eliquis 5 mg tablet 10 mg PO BID 6 Days Qty: 24 0RF Rx Instructions: Please take 10 mg dose two times a day for 6 more days, and then decrease dose to 5 mg two times a day. Eliquis 5 mg tablet 5 mg PO BID 77 Days Qty: 154 0RF Rx Instructions: Please start 5 mg dose AFTER you have completed the 6 days of 10 mg dose. polyethylene glycol 3350 [Miralax] 17 gram/dose powder 17 g PO DAILY Qty: 119 0RF Continued metformin 500 mg tablet extended release 24 hr 1,000 mg PO DAILY Qty: 60 5RF amlodipine 2.5 mg tablet 2.5 mg PO DAILY Qty: 90 1RF omeprazole 40 mg capsule,delayed release(DR/EC) 40 mg PO DAILY acetaminophen [Tylenol Extra Strength] 500 mg tablet 1,000 mg PO Q8 PRN (Reason: .Moderate pain) lidocaine 4 % adhesive patch,medicated 1 patch topical DAILY PRN (Reason: Pain) ondansetron HCl 4 mg tablet 4 mg PO Q8 PRN (Reason: Nausea) famotidine 40 mg Tablet 40 mg PO HS PRN (Reason: .heartburn) sennosides-docusate sodium 8.6-50 mg Capsule 1 tab-cap PO BID Rx Instructions: After 1st bm taper once a day. Discontinued norethindrone acetate 5 mg tablet 5 mg PO DAILY Qty: 30 2RF meloxicam 15 mg tablet 15 mg PO DAILY Discharge Orders: Discharge Order (Routine); Ordered 05/20/24 Ordered By: Liz Fuentes/Other Patient Handouts: Pulmonary Embolism, Pulmonary Embolism Dc Admission Data Admit Date/Time: 05/18/24 17:36 Attending Provider: Singh Lopez Admit Provider: Tisha Esquivel Primary Care Provider: Abdirahman Miller V. Other Providers: Tisha Esquivel Supervising Physician Co-Signing Physician Notes Attending attestation Pt seen and examined in concert with Dr. Lucas. In agreement with the documented findings as noted in the resident documentation with any exceptions or additions as noted here. Generally improved shortness of breath and fatigue while walking compared to prior to admission. Suprapubic abdominal pain which is new and described as cramping, similar to previous menstrual pain, accompanied by passage of clots approx 3 days after stopping progesterone. On examination, S1/S2 nl RRR no MCG. CTAB. Abd NT/ND BS+ve Pulmonary embolism, likely provoked - transitioned to apixaban and tolerating with some increase in vaginal bleeding. Suprapubic abdominal pain - most c/w menstrual pain, likely since d/c of progesterone. Encourage conservative management, avoidance of NSAID for pain control on apixaban. Close follow up with gynecology team - can consider restart of progesterone but with recent PE would trial conservative management first. Repeat CBC at follow up to assess for metroragghia induced anemia Constipation - improvement on polyethylene glycol, continue miralax outpatient regimen, encourage hydration Hypertension - gradually improving, likely correlated with anxiety, pain, postoperative state. Monitor in outpatient setting. Else see resident documentation as noted. Total attending physician time spent with this patient's care on the day of discharge: 40 minutes. Resident Activity Tracking Resident Involvement: Resident Care Provided Care Provided: Adult Hospital Medicine
== END 2024-05-20 15:43 | disposition home or self-care (01) | DRG 176 ==
LOC: ED 10:37 → 2N 17:36 → SUATTDRO 17:36 → 2N 22:27

== ENCOUNTER 2024-06-01 15:00 | Inpatient (IN) ==
--- NOTE | 2024-06-01 15:24 | ED Triage Note ---
Date of Service June 01, 2024 Provider in Triage Author: Benito Yap History of Present Illness This patient was briefly evaluated while in triage. An abbreviated physical exam was performed. This patient is a 48-year-old Female who presents to the ED for evaluation recent dx of PE on Eliquis heavy menstrual bleeding x 2 weeks sent by PCP for symptomatic anemia having SOB, chest pain, fatigue Hgb 8.5 yesterday Physical Exam GENERAL: NAD CARDIOVASCULAR: RRR RESPIRATORY: CTA ABDOMEN: BS x 4. Nontender to palpation. Initial orders for labs and / or imaging were placed and patient was placed in the waiting area until a bed is available. Please see further documentation for the full ED course.
--- NOTE | 2024-06-01 16:05 | XRay Report ---
SINGLE VIEW CHEST CLINICAL HISTORY: Atypical chest pain. Dyspnea FINDINGS: A PA chest radiograph is compared to study dated 05/23/2024. The cardiomediastinal silhouette is unremarkable. The lungs and pleural spaces are clear. No pneumothorax is seen. The bony thorax is grossly intact. IMPRESSION: No active disease in the chest. ACT 112: Negative or not required by law. Electronically signed by: Juan R Kincaid M.D. 06/01/2024 4:04 PM
[2024-06-01 16:21] LABS: Basophils # (auto) 0.02 K/uL (0.00-0.20); Basophils % (auto) 0.3 %; Eosinophils # (auto) 0.08 K/uL (0.00-0.50); Hematocrit (blood only) 26.6 % (37.0-47.0); Hemoglobin 8.9 g/dl (12.0-16.0); Immature Granulocytes # (auto) 0.03 K/uL (0.01-0.20); Immature Granulocytes % (auto) 0.4 %; Lymphocytes # (auto) 1.69 K/uL (1.20-3.40); Lymphocytes % (auto) 21.9 %; Mean Corpuscular Hemoglobin 28.9 pg (25.0-34.0); Mean Corpuscular Hgb Conc 33.5 g/dL (32.0-36.0); Mean Corpuscular Volume 86.4 fL (80.0-100.0); Mean Platelet Volume 9.9 fL (9.4-12.4); Monocytes # (auto) 0.31 K/uL (0.11-0.59); Neutrophils # (auto) 5.57 K/uL (1.40-6.50); Neutrophils % (auto) 72.4 %; Platelet Count 278 K/uL (130-400); RDW Coefficient of Variation 12.2 % (11.5-14.5); RDW Standard Deviation 37.8 fL (36.4-46.3); Red Blood Count 3.08 M/uL (4.20-5.40)
[2024-06-01 16:40] LABS: Alanine Aminotransferase 15 U/L (7-52); Albumin Globulin Ratio 1.4 (0.9-2); Albumin Level 4.3 gm/dl (3.4-5.0); Alkaline Phosphatase 54 U/L (34-104); Anion Gap 8 (3-11); Aspartate Aminotransferase 14 U/L (13-39); BUN Creatinine Ratio 12.6 (10-20); Bilirubin,Total 0.4 mg/dl (0.2-1.0); Blood Urea Nitrogen 11 mg/dl (6-23); Calcium 9.3 mg/dl (8.6-10.3); Carbon Dioxide 26 mmol/L (21-32); Chloride 106 mmol/L (98-107); Est GFR (African American) 92.6 ml/min; Est GFR (Non-African American) 79.9 ml/min; Glucose 110 mg/dl (70-99(Fasting)); Potassium 3.8 mmol/L (3.5-5.1); Sodium 140 mmol/L (136-145); Total Protein 7.3 gm/dl (6.0-8.3)
[2024-06-01 16:45] LABS: Troponin I High Sensitivity 3.9 pg/ml (0-14)
[2024-06-01 16:46] LABS: Prothrombin Time 10.6 Seconds (9.0-12.0)
[2024-06-01 16:55] LABS: Thyroid Stimulating Hormone 1.322 uIu/ml (0.300-4.500)
[2024-06-01] MEDS ORDERED: SODIUM CHLORIDE 0.9% 250 ML IV PRN (18:31)
--- NOTE | 2024-06-01 18:35 | Emergency Department Note ---
Impression & Plan Symptomatic anemia, Vaginal bleeding, Chest pain, Shortness of breath ED Provider Note NAME: ROBERT HENRY AGE: 48 SEX: F : 1975 ARRIVES VIA: Walk-In INFORMANT: Patient ED PROVIDER(S): Guillaume Mcduffie DO CHIEF COMPLAINT: Chest pain, shortness of breath, dizziness and vaginal bleeding HPI: Patient is a 48-year-old female with a past medical history of PE secondary to a cystectomy performed in the [facility] system. She was diagnosed at the end of April and placed on Eliquis. Since then she has been having heavy vaginal bleeding. Tuesday and Tuesday was the worst it has improved and she is going through 1 pad every 8-10 hours now. She notes since Tuesday after the heavy bleeding on Tuesday and Tuesday she has been having exertional chest pain and shortness of breath as well as dizziness. She notes her heart rate significantly elevated with any movement. She denies any belly pain other than cramping. No dysuria, urgency or frequency. No other exacerbating or remitting factors. ADDITIONAL HISTORY OBTAINED: Per HPI Chronic Medical/Social Conditions Affecting Care: Per HPI PAST MEDICAL HISTORY:See Below PAST SURGICAL HISTORY:See Below FAMILY HISTORY:See Below SOCIAL HISTORY:See Below HOME MEDICATIONS:See Below ALLERGIES:See Below VITALS:See Below PHYSICAL EXAMINATION: GENERAL: Sitting up in bed, alert, well appearing, well nourished, no distress, non-toxic EYE EXAM: normal conjunctiva. OROPHARYNX: mucous membranes are moist NECK: supple, no nuchal rigidity, no adenopathy, non-tender LUNGS: Clear to auscultation. Normal chest wall mechanics HEART: no murmurs, S1 normal and S2 normal ABDOMEN: abdomen soft, non-tender, normo-active bowel sounds, no masses, no rebound or guarding. UPPER EXTREMITIES: upper extremities are grossly normal. LOWER EXTREMITIES: No pitting edema. NEURO EXAM: Normal sensorium, cranial nerves II-XII grossly intact, normal speech, no gross weakness of arms, no gross weakness of legs. MEDICAL DECISION MAKING: Patient is a 48-year-old female recently diagnosed with PEs placed on Eliquis who presents ER for chest pain shortness of breath and lightheadedness. IV was established blood was obtained. Hemoglobin was at 8.9. This trended down from 12-1/2. INR unremarkable. BMP along LFTs bilirubin and TSH is unremarkable. Patient was typed and crossed. She notes the bleeding has improved significantly over the past couple days as it was worse this weekend. Ordered a pelvic ultrasound but this was canceled by the hospitalist. Chest x-ray was clean. EKG nondiagnostic. With the significant drop in hemoglobin discussed case with the hospitalist for further observation and likely need evaluation by [employer] CLERK and close monitoring and trending of the H&H. Consults/Care Managements Discussions: Per MDM Triage Nursing notes reviewed. Limited review of prior medical records performed Vital Signs: reviewed and remarkable for HTN Differential diagnosis: Infection, dehydration, metabolic abnormality, hypo/hyperglycemia, electrolyte disturbance, anemia, hypoxia, cardiac sources, intracerebral event, toxicologic, neurologic, as well as other pathologies. ER treatment provided: See below Diagnostics interpreted by me include EKG and cardiac monitoring as listed below: -Cardiac Monitoring: An order was placed for continuous cardiac monitoring. The monitor shows a rate of 90 with sinus rhythm. -ECG: Sinus rhythm rate of 90 Normal axis T wave version lead III QTc 425 -Laboratory studies:Interpreted by me as stated above in MDM and shown below. Imaging studies: Xrays: As interpreted by me: Portable AP upright 1 view of the chest shows no focal infiltrate CTs show: none Procedures:none Critical Care: None Past Med/Surg History Problem List (Updated 06/01/24 @ 21:28 by Guillaume Mcduffie DO) Shortness of breath (Acute) Chest pain (Acute) Vaginal bleeding (Acute) Symptomatic anemia (Acute) Vaginal bleeding Episodic lightheadedness (Acute) History of pulmonary embolism (Acute) Constipation Pulmonary embolism (Acute) ARANA (dyspnea on exertion) (Acute) HTN (hypertension) GERD (gastroesophageal reflux disease) Anxiety (Acute) Right carpal tunnel syndrome (Acute) Polycystic ovarian syndrome (Acute) Insulin resistance syndrome (Acute) Hyperlipidemia (Acute) Allergic sinusitis Cervical rib (Acute) Rectal polyp (Acute) Spondylolisthesis, acquired (Acute) Medical History (Updated 06/01/24 @ 21:28 by Guillaume Mcduffie DO) Right calf pain Atypical chest pain Sinus infection Left elbow tendinitis Trigger ring finger of left hand LFTs abnormal Encounter for health maintenance examination Low back pain Isolated lactose deficiency Joint stiffness of spine Neck pain Fluctuating blood pressure Insect bite Sebaceous cyst of left axilla Situational stress Sinusitis, maxillary, chronic Sinus headache Digestive problems Varicella Vulvar abscess 09/14/18 Oligomenorrhea 01/06/17 ARANA (dyspnea on exertion) Chest tightness Chest pain Surgical History H/O endoscopy H/O colonoscopy H/O oral surgery Family History Aunt Breast cancer Ovarian cancer Sister Endometriosis H/O: hysterectomy Father Coronary heart disease Heart disease Lung disease Lung cancer Grandfather (Maternal) Myocardial infarction Mother Stroke Myocardial infarction Other Diabetes Hypercholesterolemia Hypertension Denies family history of Colon cancer Prostate cancer Social History Smoking Status: Never smoker Do You Dip or Chew Tobacco: No; Hx Alcohol Use: Yes Alcohol Intake Frequency Comment: Once a week. 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 [employer] Feels Safe at Home: Yes Dental Care, Regularly: Yes Physical Activity Frequency: 3-4 Times per Week Physical Activity Frequency Comment: Aerobic conditioning, strength training, and stretching/oga/pilates Seatbelt Use: always Sunscreen Use: No Sexual Activity: has been sexually active within the last 12 months Assistive Devices: Glasses Allergies Allergies Allergy/AdvReac Type Severity Reaction Status Date / Time house dust Allergy Intermediate CONGESTION Verified 06/01/24 18:22 nettle Allergy Intermediate CONGESTION Verified 06/01/24 18:22 ragweed pollen Allergy Intermediate CONGESTION Verified 06/01/24 18:22 Home Meds Home Medications Medication Instructions Recorded Confirmed acetaminophen 500 mg tablet 1,000 mg PO Q8 PRN Pain, Moderate 03/27/24 06/01/24 (Tylenol Extra Strength) lidocaine 4 % topical patch 1 patch topical DAILY PRN Pain 03/27/24 06/01/24 omeprazole 40 mg capsule,delayed 40 mg PO DAILY Acid Reflux 03/27/24 06/01/24 release ondansetron HCl 4 mg tablet 4 mg PO Q8 PRN Nausea 05/18/24 06/01/24 apixaban 5 mg tablet (Eliquis) 10 mg PO BID 05/23/24 06/01/24 sennosides 8.6 mg-docusate sodium 1 tab-cap PO HS 05/23/24 06/01/24 50 mg capsule amlodipine 2.5 mg tablet 2.5 mg PO HS 06/01/24 06/01/24 famotidine 40 mg tablet 40 mg PO HS Reflux 06/01/24 06/01/24 [id number]-opf-gkbk-FA-Ca carb-vit K 1 tab PO DAILY 06/01/24 06/01/24 18 mg iron-400 mcg-500 mg tablet norethindrone acetate 5 mg tablet 5 mg PO QAM 06/01/24 06/01/24 polyethylene glycol 3350 17 17 g PO HS 06/01/24 06/01/24 gram/dose oral powder (Miralax) Previous Rx's Medication Instructions Recorded metformin 500 mg tablet,extended 1,000 mg (2 x 500 mg) PO DAILY #60 01/05/24 release 24 hr tabs Results & Data (ED) Vital Signs Vital Signs - 24 hr 06/01/24 15:24 06/01/24 18:25 06/01/24 18:25 Temperature 36.6 C Temperature Source Temporal Artery Scan Pulse Rate 110 H 86 Respiratory Rate 20 16 Respiratory Effort / Characteristics Non-Labored Spontaneous Non-Labored Spontaneous Respiratory Depth Normal Normal Blood Pressure 156/92 H Blood Pressure [Left Arm] 174/102 H Blood Pressure Mean 113 Blood Pressure Mean [Left Arm] 126 Pulse Oximetry 99 100 Oxygen Delivery Method Room Air Room Air Sepsis Recent Fever Within 48 Hours No Sepsis New/Unexplained Change in Mental Status N/A Sepsis Action Taken by Nursing No Action Required Laboratory Data 06/01/24 16:05 06/01/24 16:05 Lab Results 06/01/24 06/01/24 Range/Units 16:05 19:46 WBC 7.70 (4.8-10.8) K/ul RBC 3.08 L (4.20-5.40) M/uL Hgb 8.9 L (12.0-16.0) g/dl Hct 26.6 L (37.0-47.0) % MCV 86.4 (80.0-100.0) fL MCH 28.9 (25.0-34.0) pg MCHC 33.5 (32.0-36.0) g/dL RDW Std Deviation 37.8 (36.4-46.3) fL RDW Coeff of Delgado 12.2 (11.5-14.5) % Plt Count 278 (130-400) K/uL MPV 9.9 (9.4-12.4) fL Immature Gran % (Auto) 0.4 % Neut % (Auto) 72.4 % Lymph % (Auto) 21.9 % Noble % (Auto) 4.0 % Eos % (Auto) 1.0 % Baso % (Auto) 0.3 % Neut # (Auto) 5.57 (1.40-6.50) K/uL Lymph # (Auto) 1.69 (1.20-3.40) K/uL Noble # (Auto) 0.31 (0.11-0.59) K/uL Eos # (Auto) 0.08 (0.00-0.50) K/uL Baso # (Auto) 0.02 (0.00-0.20) K/uL Immature Gran # (Auto) 0.03 (0.01-0.20) K/uL PT 10.6 (9.0-12.0) Seconds INR 1.0 (0.9-1.1) Sodium 140 (136-145) mmol/L Potassium 3.8 (3.5-5.1) mmol/L Chloride 106 (98-107) mmol/L Carbon Dioxide 26 (21-32) mmol/L Anion Gap 8 (3-11) BUN 11 (6-23) mg/dl Creatinine 0.87 (0.6-1.2) mg/dl Est Cr Clr Drug Dosing Not Reportable Est GFR ( Amer) 92.6 ml/min Est GFR (Non-Af Amer) 79.9 ml/min BUN/Creatinine Ratio 12.6 (10-20) Glucose 110 H (70-99(Fasting)) mg/dl Calcium 9.3 (8.6-10.3) mg/dl Total Bilirubin 0.4 (0.2-1.0) mg/dl AST 14 (13-39) U/L ALT 15 (7-52) U/L Alkaline Phosphatase 54 (34-104) U/L Troponin I High Sens 3.9 (0-14) pg/ml Total Protein 7.3 (6.0-8.3) gm/dl Albumin 4.3 (3.4-5.0) gm/dl Globulin 3.0 (2.5-4.0) gm/dl Albumin/Globulin Ratio 1.4 (0.9-2) TSH 1.322 (0.300-4.500) uIu/ml Blood Type AB Positive Blood Type Recheck AB Positive Antibody Screen NEGATIVE Imaging Data Radiologist's Impression: Chest X-Ray 06/01/24 15:25 SINGLE VIEW CHEST CLINICAL HISTORY: Atypical chest pain. Dyspnea FINDINGS: A PA chest radiograph is compared to study dated 05/23/2024. The cardiomediastinal silhouette is unremarkable. The lungs and pleural spaces are clear. No pneumothorax is seen. The bony thorax is grossly intact. IMPRESSION: No active disease in the chest. ACT 112: Negative or not required by law. Electronically signed by: Juan R Kincaid M.D. 06/01/2024 4:04 PM Discharge Plan Visit Data Chief Complaint: Referred by Doctor Stated Complaint: anemia, ref by doc, sob, high bp ED Provider: Guillaume Mcduffie Discharge Problem: Symptomatic anemia, Vaginal bleeding, Chest pain, Shortness of breath Forms Stand Alone Forms: [facility] Prescriptions Prescriptions: No Action metformin 500 mg tablet extended release 24 hr 1,000 mg PO DAILY Qty: 60 5RF Eliquis 5 mg tablet 10 mg PO BID omeprazole 40 mg capsule,delayed release(DR/EC) 40 mg PO DAILY acetaminophen [Tylenol Extra Strength] 500 mg tablet 1,000 mg PO Q8 PRN (Reason: Pain, Moderate) lidocaine 4 % adhesive patch,medicated 1 patch topical DAILY PRN (Reason: Pain) ondansetron HCl 4 mg tablet 4 mg PO Q8 PRN (Reason: Nausea) sennosides-docusate sodium 8.6-50 mg capsule 1 tab-cap PO HS norethindrone acetate 5 mg tablet 5 mg PO QAM Women's Multivitamin 18 mg iron-400 mcg-500 mg Tablet 1 tab PO DAILY famotidine 40 mg tablet 40 mg PO HS amlodipine 2.5 mg tablet 2.5 mg PO HS polyethylene glycol 3350 [Miralax] 17 gram/dose powder 17 g PO HS Referrals Referrals: Abdirahman Miller MD [Primary Care Provider] - Discharge Problem: Chest pain Qualifiers: Chest pain type: unspecified Qualified Code(s): R07.9 - Chest pain, unspecified
--- NOTE | 2024-06-01 18:51 | History & Physical Report ---
Date of Service June 01, 2024 Assessment & Plan (1) Pulmonary embolism: (2) Vaginal bleeding: (3) Constipation: (4) HTN (hypertension): (5) GERD (gastroesophageal reflux disease): (6) Polycystic ovarian syndrome: Plan Patient is a 48 yo F w/ a PMHx of recent PE Dx (05/16), PCOS, GERD, anxiety, constipation, HTN, HLD, l. elbow tendonitis, trigger ring finger of l. hand, chronic sinusitis who presented due to concerns about acute chest pain, fatigue/weakness, and prolonged periods (menorrhagia). 1) Acute chest pain/Recent Hx of PE - HSTrops, 3.9; CXR, no acute findings; EKG pending - PE Dx'ed during visit ED, discharged on 05/20/24, finished on week-long Eliquis, 10 mg, PO, BID - continue Eliquis, 5 mg, PO, BID - a component of this pain is musculoskeletal --> acetaminophen, 650 mg, q4hr; lidocaine patch over chest area - consider CTA-chest tomorrow if patient is feeling much worse 2) Vaginal bleeding - patient on day 13 (typical period length of 6 days) of period - Hgb, 8.9 <-- 8.5 (admission) <-- 11.5 (05/25/24) - Type and cross ordered, PRBC's on hold - continue multivitamin (w/ iron) - continue norethindrone acetate, 5 mg, PO, QAM - CBC in AM 3) GERD - continue omeprazole (prob pantoprazole in hospital) and famotidine at home med dosing - patient burping a lot; 1-time dose of Maalox given at time of admission 4) HTN - continue amlodipine, 2.5 mg, PO, daily 5) PCOS - continue metformin, 1000 mg, daily 6) Constipation - likely secondary to iron supplementation - continue Miralax, 17 g, PO, daily; senna-docusate, daily Code status: Full code Disposition: Med-Surg Tele DVT Prophylaxis: Eliquis, 5 mg, PO, BID FENGI: Low salt diet ordered, History of Present Illness Chief Complaint: menorrhagia, acute chest pain Primary Care Provider: Abdirahman Miller MD Patient is a 48 yo F w/ a PMHx of recent PE Dx (05/16), PCOS, GERD, anxiety, constipation, HTN, HLD, l. elbow tendonitis, trigger ring finger of l. hand, chronic sinusitis who presented due to concerns of chest pain in middle/upper sternum, weakness, fatigue, and an extended period of 13 days (typical period of 6 days). Patient has been feeling increasing SOB w/ exertion the last few days, continued vaginal bleeding, and weakness/fatigue that is not improving. Patient called her PCP and transformation consultant and her PCP recommended her to come to the ED and her transformation consultant started her on the norethindrone acetate. Allergies Allergy/AdvReac Type Severity Reaction Status Date / Time house dust Allergy Intermediate CONGESTION Verified 06/01/24 18:22 nettle Allergy Intermediate CONGESTION Verified 06/01/24 18:22 ragweed pollen Allergy Intermediate CONGESTION Verified 06/01/24 18:22 Home Medications Medication Instructions Recorded Confirmed Type metformin 500 mg tablet,extended 1,000 mg (2 x 500 mg) PO DAILY #60 01/05/24 06/01/24 Rx release 24 hr tabs acetaminophen 500 mg tablet 1,000 mg PO Q8 PRN Pain, Moderate 03/27/24 06/01/24 History (Tylenol Extra Strength) lidocaine 4 % topical patch 1 patch topical DAILY PRN Pain 03/27/24 06/01/24 History omeprazole 40 mg capsule,delayed 40 mg PO DAILY Acid Reflux 03/27/24 06/01/24 History release ondansetron HCl 4 mg tablet 4 mg PO Q8 PRN Nausea 05/18/24 06/01/24 History sennosides 8.6 mg-docusate sodium 1 tab-cap PO HS 05/23/24 06/01/24 History 50 mg capsule amlodipine 2.5 mg tablet 2.5 mg PO HS 06/01/24 06/01/24 History famotidine 40 mg tablet 40 mg PO HS Reflux 06/01/24 06/01/24 History ssmzaqfy-rrv-xrqo-FA-Ca carb-vit K 1 tab PO DAILY 06/01/24 06/01/24 History 18 mg iron-400 mcg-500 mg tablet norethindrone acetate 5 mg tablet 5 mg PO QAM 06/01/24 06/01/24 History polyethylene glycol 3350 17 17 g PO HS 06/01/24 06/01/24 History gram/dose oral powder (Miralax) apixaban 5 mg tablet (Eliquis) 5 mg PO BID 14 days #28 tabs 06/03/24 Rx Past Med/Surg History Problem List (Updated 06/02/24 @ 08:30 by Kurt Torrez MD) Acute posthemorrhagic anemia Abnormal uterine bleeding (AUB) Acute pulmonary embolus Shortness of breath (Acute) Chest pain (Acute) Vaginal bleeding (Acute) Symptomatic anemia (Acute) Vaginal bleeding Episodic lightheadedness (Acute) History of pulmonary embolism (Acute) Anxiety (Acute) Right carpal tunnel syndrome (Acute) Polycystic ovarian syndrome (Acute) Insulin resistance syndrome (Acute) Hyperlipidemia (Acute) Allergic sinusitis Cervical rib (Acute) Rectal polyp (Acute) Spondylolisthesis, acquired (Acute) Medical History (Updated 06/02/24 @ 08:30 by Kurt Torrez MD) Constipation Pulmonary embolism ARANA (dyspnea on exertion) HTN (hypertension) GERD (gastroesophageal reflux disease) Right calf pain Atypical chest pain Sinus infection Left elbow tendinitis Trigger ring finger of left hand LFTs abnormal Encounter for health maintenance examination Low back pain Isolated lactose deficiency Joint stiffness of spine Neck pain Fluctuating blood pressure Insect bite Sebaceous cyst of left axilla Situational stress Sinusitis, maxillary, chronic Sinus headache Digestive problems Varicella Vulvar abscess 09/14/18 Oligomenorrhea 01/06/17 ARANA (dyspnea on exertion) Chest tightness Chest pain Surgical History H/O endoscopy H/O colonoscopy H/O oral surgery Family History Aunt Breast cancer Ovarian cancer Sister Endometriosis H/O: hysterectomy Father Coronary heart disease Heart disease Lung disease Lung cancer Grandfather (Maternal) Myocardial infarction Mother Stroke Myocardial infarction Other Diabetes Hypercholesterolemia Hypertension Denies family history of Colon cancer Prostate cancer Social History Smoking Status: Never smoker Do You Dip or Chew Tobacco: No; Hx Alcohol Use: Yes Alcohol Intake Frequency Comment: Once a week. 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[employer] Feels Safe at Home: Yes Dental Care, Regularly: Yes Physical Activity Frequency: 3-4 Times per Week Physical Activity Frequency Comment: Aerobic conditioning, strength training, and stretching/oga/pilates Seatbelt Use: always Sunscreen Use: No Sexual Activity: has been sexually active within the last 12 months Assistive Devices: Glasses Review of Systems Constitutional: + fatigue and + weakness; no fever, no c hills and no body aches Eyes: + worsening vision (increased blurriness of vision) Ear, Nose, Mouth, Throat: + dizziness (when shifting positions), + nasal congestion and + sinus pain/pressure (started taking azelastine) Respiratory: + dyspnea and + pain on inspiration; no cough, no chest congestion and no hemoptysis Cardiovascular: + chest pain, + dyspnea and + palpitatio ns Gastrointestinal: + constipation (constipated since beginn ing Fe supplement); no abdominal pain, no nausea, no vomiting and no diarrhea/loose stools Genitourinary: + abnormal periods and + abnormal vagina l bleeding; no dysuria and no urinary frequency Hematologic / Lymphatic: no easy bleeding and no easy bruising Physical Exam Constitutional: WD/WN, vitals as above Respiratory: normal respiratory effort, lungs clear to auscultation Cardiovascular: RRR, no murmur, no edema Extremities: normal capillary refill; no calf tenderness Gastrointestinal (Abdomen): normal bowel sounds, soft, nontender, no hepatosplenomegaly Musculoskeletal: Head/Neck/Chest: + abnormal palpation of chest wall; normal inspection of chest wall Psychiatric: A+Ox3, euthymic affect Results & Data Results & Data Vital Signs (Past 12 Hours) Vital Signs Temp Pulse Resp BP BP Pulse Ox O2 Del Method 06/01/24 18:25 16 174/102 H 06/01/24 18:25 86 100 Room Air 06/01/24 15:24 36.6 C 110 H 20 156/92 H 99 Room Air Supervising Physician Co-Signing Physician Notes I personally saw and examined the patient. I verified all john points and agree with resident physician Dr Arslan Leonard, with the following exceptions and/or additions: 48 year old female presents to the ER with vaginal bleeding, shortness of breath and chest pain slowly getting progressively worse since Tuesday. Started progestin this morning. Diagnosed PE 05/18. O/E HS increased rate, regular rhythm, no murmurs, Chest CTAB, Abdo SNT A/P Chest pain - suspect more pleuritic component of her pulmonary embolism +/- MSK Vaginal bleeding - started back on progestin today and already improving, Hemoglobin stable from yesterday. Ok to continue on Eliquis. Repeat CBC in AM. Transfuse < 7. Pulmonary Embolism - diagnosed 05/18, continue Eliquis
[2024-06-01] MEDS: APIXABAN 5 MG TABLET PO SCH (21:39)
[2024-06-01] MEDS: ALUMINUM/MAGNESIUM SUSP 30 ML UDC PO STA (21:39)
[2024-06-01] MEDS: FAMOTIDINE 40 MG TABLET PO ONE (23:06)
[2024-06-01] MEDS: amLODIPine BESYLATE 5 MG TAB PO ONE (23:07)
[2024-06-01] MEDS: POLYETHYLENE (MIRALAX) 17 GM PACK PO STA (23:07)
[2024-06-01] MEDS ORDERED: ACETAMINOPHEN 325 MG TAB PO PRN (23:42)
[2024-06-01] MEDS ORDERED: LIDOCAINE 5% 1 PATCH TD PRN (23:51)
[2024-06-01] MEDS: DOCUSATE SODIUM/SENNA 50/8.6MG TAB PO SCH (23:58)
[2024-06-02 04:18] LABS: Hematocrit (blood only) 22.1 % (37.0-47.0); Hemoglobin 7.4 g/dl (12.0-16.0); Mean Corpuscular Hemoglobin 28.9 pg (25.0-34.0); Mean Corpuscular Hgb Conc 33.5 g/dL (32.0-36.0); Mean Corpuscular Volume 86.3 fL (80.0-100.0); Mean Platelet Volume 10.1 fL (9.4-12.4); Platelet Count 260 K/uL (130-400); RDW Coefficient of Variation 12.1 % (11.5-14.5); RDW Standard Deviation 37.8 fL (36.4-46.3); Red Blood Count 2.56 M/uL (4.20-5.40)
[2024-06-02] MEDS: PANTOprazole 40 MG TAB PO SCH (07:20)
[2024-06-02] MEDS: CEROVITE ADV FORMULA TAB PO SCH (07:21)
[2024-06-02] MEDS: metFORMIN HCL ER 500 MG TABCR PO SCH (07:21)
[2024-06-02] MEDS: NORETHINDRONE 5 MG TAB PO SCH (07:26)
[2024-06-02 08:17] LABS: Hematocrit (blood only) 25.5 % (37.0-47.0); Hemoglobin 8.3 g/dl (12.0-16.0)
[2024-06-02] MEDS: APIXABAN 5 MG TABLET PO SCH (08:19)
--- NOTE | 2024-06-02 08:33 | OB/GYN Consultation ---
Date of Consultation June 02, 2024 Assessment & Plan (1) Acute pulmonary embolus: Alisa is a 48-year-old presents for symptomatic anemia secondary to acute blood loss from heavy uterine bleeding while on Eliquis for treatment of pulmonary embolus. Reports that bleeding has improved since yesterday when she started norethindrone 5 mg as a daily dose. No bleeding noted at present on exam. I recommend continuing the norethindrone 5 mg daily ongoing. If bleeding were to resume and noted to be heavy would recommend transitioning to medroxyprogesterone 10 mg 3 times daily until bleeding stops and then can taper dosing down to a goal of 10 mg daily ongoing. Progesterone should be able to control bleeding even on Eliquis and can restart her primary teams recommendation. Findings reviewed with patient and answered all questions. (2) Abnormal uterine bleeding (AUB): (3) Acute posthemorrhagic anemia: History of Present Illness Attending Physician: Jony Singh DO History of Present Illness Alisa is a 48-year-old presents to the ED for acute anemia and worsening symptoms related to pulmonary embolus that occurred post surgery. Has been on Eliquis and noted very heavy uterine bleeding starting on May 24. Reports that heavy bleeding continued until yesterday morning when she restarted the norethindrone 5 mg daily and has noted improved bleeding since that time. Reports no bleeding this morning. Has acute symptomatic anemia at present. Is currently being admitted by the medicine service for transfusion and continued monitoring. Allergies Allergy/AdvReac Type Severity Reaction Status Date / Time house dust Allergy Intermediate CONGESTION Verified 06/01/24 18:22 nettle Allergy Intermediate CONGESTION Verified 06/01/24 18:22 ragweed pollen Allergy Intermediate CONGESTION Verified 06/01/24 18:22 Home Medications Medication Instructions Recorded Confirmed Type metformin 500 mg tablet,extended 1,000 mg (2 x 500 mg) PO DAILY #60 01/05/24 06/01/24 Rx release 24 hr tabs acetaminophen 500 mg tablet 1,000 mg PO Q8 PRN Pain, Moderate 03/27/24 06/01/24 History (Tylenol Extra Strength) lidocaine 4 % topical patch 1 patch topical DAILY PRN Pain 03/27/24 06/01/24 History omeprazole 40 mg capsule,delayed 40 mg PO DAILY Acid Reflux 03/27/24 06/01/24 History release ondansetron HCl 4 mg tablet 4 mg PO Q8 PRN Nausea 05/18/24 06/01/24 History apixaban 5 mg tablet (Eliquis) 10 mg PO BID 05/23/24 06/01/24 History sennosides 8.6 mg-docusate sodium 1 tab-cap PO HS 05/23/24 06/01/24 History 50 mg capsule amlodipine 2.5 mg tablet 2.5 mg PO HS 06/01/24 06/01/24 History famotidine 40 mg tablet 40 mg PO HS Reflux 06/01/24 06/01/24 History kqbbkygs-jjk-evho-FA-Ca carb-vit K 1 tab PO DAILY 06/01/24 06/01/24 History 18 mg iron-400 mcg-500 mg tablet norethindrone acetate 5 mg tablet 5 mg PO QAM 06/01/24 06/01/24 History polyethylene glycol 3350 17 17 g PO HS 06/01/24 06/01/24 History gram/dose oral powder (Miralax) Patient History Medical History (Updated 06/02/24 @ 08:30 by Kurt Torrez MD) Constipation Pulmonary embolism ARANA (dyspnea on exertion) HTN (hypertension) GERD (gastroesophageal reflux disease) Right calf pain Atypical chest pain Sinus infection Left elbow tendinitis Trigger ring finger of left hand LFTs abnormal Encounter for health maintenance examination Low back pain Isolated lactose deficiency Joint stiffness of spine Neck pain Fluctuating blood pressure Insect bite Sebaceous cyst of left axilla Situational stress Sinusitis, maxillary, chronic Sinus headache Digestive problems Varicella Vulvar abscess 09/14/18 Oligomenorrhea 01/06/17 ARANA (dyspnea on exertion) Chest tightness Chest pain Surgical History H/O endoscopy H/O colonoscopy H/O oral surgery Family History Aunt Breast cancer Ovarian cancer Sister Endometriosis H/O: hysterectomy Father Coronary heart disease Heart disease Lung disease Lung cancer Grandfather (Maternal) Myocardial infarction Mother Stroke Myocardial infarction Other Diabetes Hypercholesterolemia Hypertension Denies family history of Colon cancer Prostate cancer Social History Smoking Status: Never smoker Do You Dip or Chew Tobacco: No; Hx Alcohol Use: Yes Alcohol Intake Frequency Comment: Once a week. 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 Sweep for blood clots noted no blood clots in the vaginal vault. Results & Data Vital Signs (Past 12 Hours) Vital Signs Pulse Pulse Resp BP BP Pulse Ox O2 Del Method 06/02/24 07:11 77 20 106/68 98 06/02/24 03:09 75 16 108/61 98 06/02/24 03:05 79 06/02/24 02:14 79 18 128/79 98 Room Air 06/01/24 23:26 91 H 16 123/72 97 Room Air 06/01/24 22:00 92 H PG Care Time/CCT Total # of Minutes Spent Total Time Spent with Patient: Total time spent is greater than 50% in coordination of care (as documented) at patient's floor/unit and/or counseling patient: Coding Level of Care Code 48706 IN/OBS CONSULT LVL 2,35M Diagnoses Acute pulmonary embolism, unspecified pulmonary embolism type, unspecified whether acute cor pulmonale present I26.99 Pulmonary embolism type: unspecified Acute cor pulmonale presence: unspecified Abnormal uterine bleeding (AUB) N93.9 Acute posthemorrhagic anemia D62 (1) Acute pulmonary embolus Pulmonary embolism type: unspecified Acute cor pulmonale presence: unspecified Qualified Code(s): I26.99 - Other pulmonary embolism without acute cor pulmonale
--- NOTE | 2024-06-02 12:49 | Hospitalist Progress Note ---
Date of Service June 02, 2024 Assessment & Plan (1) Vaginal bleeding: (2) Constipation: (3) HTN (hypertension): (4) GERD (gastroesophageal reflux disease): (5) Polycystic ovarian syndrome: Plan Patient is a 48 yo F w/ a PMHx of recent PE Dx (05/16), PCOS, GERD, anxiety, constipation, HTN, HLD, l. elbow tendonitis, trigger ring finger of l. hand, chronic sinusitis who presented due to concerns about acute chest pain, fatigue/weakness, and heavy vaginal bleeding. Heavy Vaginal bleeding - patient on day 13 (typical period length of 6 days) of period - Hgb drop from 11.5 (05/25) to 7.4 (this morning) - SBO and lightheadedness present - Tachycardia overnight- resolved - Type and cross ordered, PRBC's on hold - continue multivitamin (w/ iron) - Lump Inspector consulted, aprec recommendations - continue norethindrone acetate, 5 mg, PO, QAM - Transfused below 7.0 - Serial H/H, CBC AM Acute chest pain/Recent Hx of PE - HSTrops, 3.9; CXR, no acute findings; EKG pending - continue Eliquis, 5 mg, PO, BID - pleuritic pain may be secondary to PE - Will continue to monitor GERD - continue PPIs and famotidine at home med dosing HTN - continue amlodipine, 2.5 mg, PO, daily PCOS - continue metformin, 1000 mg, daily Constipation - likely secondary to iron supplementation - continue Miralax, 17 g, PO, daily; senna-docusate, daily Code status: Full code Disposition: Med-Surg Tele DVT Prophylaxis: Eliquis, 5 mg, PO, BID FENGI: H/H Admission and Anticipated Discharge Date Admission Date: June 01, 2024 Supervising Physician Co-Signing Physician Notes ATTESTATION I also saw the patient and confirmed john portions of the history and exam. I agree with the impression and plan in the resident documentation, and as summarized below. She reports feeling better this afternoon after sleeping well. She noted a scant amount of vaginal blood post pelvic exam, but otherwise, bleeding has markedly slowed. EXAM Vital signs as noted Heart regular rhythm, slightly tachycardic Lungs clear with nonlabored respirations DATA Labs Most recent hemoglobin 8.1 Imaging Chest x-ray completed in the emergency department was unremarkable. EKG completed in the emergency department shows sinus tachycardia IMPRESSION & PLAN Abnormal uterine bleeding Acute posthemorrhagic anemia Monitor CBC Appreciate gynecology consultation Norethindrone 5 mg daily Continue oral iron supplementation Pulmonary embolism Resume Eliquis Additional per resident documentation Anuel Evans was seen this am, found awake in NAD. She refers feeling more tired and some light headedness. Refers bleeding had decreasing in intensity. She was consented this morning for blood. 2 units on hold. This morning hgb was 7.4 repeat was 8.3. Will continue to monitor. She is in Eliquis due to pulmonary embolism. Hold this morning until Lump Inspector evaluation. Eliquis was restarted now. Review of Systems Review of Systems: as per HPI Physical Exam Constitutional: well developed and well nourished; no acute distress Eyes: PERRL, conjunctivae normal, anicteric sclerae ENMT: external ear and nose normal, oropharynx normal Respiratory: normal respiratory effort, lungs clear to auscultation Cardiovascular: RRR, no murmur, no edema Rate/Rhythm: + tachycardic Gastrointestinal (Abdomen): normal bowel sounds, soft, nontender, no hepatosplenomegaly Skin: no rashes, warm and dry Results & Data Results & Data Vital Signs (Past 12 Hours) Vital Signs Pulse Pulse Resp BP BP Pulse Ox O2 Del Method 06/02/24 11:00 87 123/75 98 Room Air 06/02/24 07:11 77 20 106/68 98 06/02/24 03:09 75 16 108/61 98 06/02/24 03:05 79 06/02/24 02:14 79 18 128/79 98 Room Air Resident Activity Tracking Resident Involvement: Resident Care Provided Care Provided: Adult Hospital Medicine
[2024-06-02 13:18] LABS: Hematocrit (blood only) 24.9 % (37.0-47.0); Hemoglobin 8.1 g/dl (12.0-16.0)
[2024-06-02] MEDS: POLYETHYLENE (MIRALAX) 17 GM PACK PO PRN (14:51)
[2024-06-02] MEDS: FAMOTIDINE 40 MG TABLET PO ONE (15:30)
[2024-06-02 21:24] LABS: Hematocrit (blood only) 26.5 % (37.0-47.0); Hemoglobin 8.6 g/dl (12.0-16.0)
[2024-06-02] MEDS: amLODIPine BESYLATE 5 MG TAB PO SCH (21:26)
[2024-06-02] MEDS: FAMOTIDINE 40 MG TABLET PO SCH (21:26)
[2024-06-02] MEDS: FLUTICASONE PROPIONATE NA SPR 16 GM BTL PRN (23:01)
[2024-06-03 06:20] LABS: Basophils # (auto) 0.02 K/uL (0.00-0.20); Basophils % (auto) 0.3 %; Eosinophils # (auto) 0.09 K/uL (0.00-0.50); Eosinophils % (auto) 1.5 %; Hematocrit (blood only) 22.7 % (37.0-47.0); Hemoglobin 7.6 g/dl (12.0-16.0); Immature Granulocytes # (auto) 0.01 K/uL (0.01-0.20); Immature Granulocytes % (auto) 0.2 %; Lymphocytes # (auto) 2.38 K/uL (1.20-3.40); Lymphocytes % (auto) 39.5 %; Mean Corpuscular Hemoglobin 29.2 pg (25.0-34.0); Mean Corpuscular Hgb Conc 33.5 g/dL (32.0-36.0); Mean Corpuscular Volume 87.3 fL (80.0-100.0); Monocytes # (auto) 0.34 K/uL (0.11-0.59); Monocytes % (auto) 5.6 %; Neutrophils # (auto) 3.19 K/uL (1.40-6.50); Neutrophils % (auto) 52.9 %; Platelet Count 266 K/uL (130-400); RDW Coefficient of Variation 12.3 % (11.5-14.5); White Blood Count 6.03 K/ul (4.8-10.8)
[2024-06-03 06:28] LABS: BUN Creatinine Ratio 27.4 (10-20); Creatinine Clr Calc Pharmacy 99.8 ml/min; Est GFR (African American) 125.3 ml/min; Est GFR (Non-African American) 108.1 ml/min; Potassium 3.9 mmol/L (3.5-5.1)
[2024-06-03 06:50] LABS: Polychromasia 1+
--- NOTE | 2024-06-03 06:59 | Discharge Summary ---
Date of Service June 03, 2024 Admission HPI Per Admitting Provider Patient is a 48 yo F w/ a PMHx of recent PE Dx (05/16), PCOS, GERD, anxiety, constipation, HTN, HLD, l. elbow tendonitis, trigger ring finger of l. hand, chronic sinusitis who presented due to concerns of chest pain in middle/upper sternum, weakness, fatigue, and an extended period of 13 days (typical period of 6 days). Patient has been feeling increasing SOB w/ exertion the last few days, continued vaginal bleeding, and weakness/fatigue that is not improving. Patient called her PCP and investigative writer and her PCP recommended her to come to the ED and her investigative writer started her on the norethindrone acetate. Admission Exam Per Admitting Provider Constitutional: WD/WN, vitals as above Respiratory: normal respiratory effort, lungs clear to auscultation Cardiovascular: RRR, no murmur, no edema Extremities: normal capillary refill; no calf tenderness Gastrointestinal (Abdomen): normal bowel sounds, soft, nontender, no hepatosplenomegaly Musculoskeletal: Head/Neck/Chest: + abnormal palpation of chest wall; normal inspection of chest wall Psychiatric: A+Ox3, euthymic affect Principal Diagnosis Abnormal uterine bleeding Discharge Exam Constitutional well developed and well nourished; no acute distress Eyes PERRL, conjunctivae normal, anicteric sclerae ENMT external ear and nose normal, oropharynx normal Respiratory normal respiratory effort, lungs clear to auscultation Cardiovascular RRR, no murmur, no edema Rate/Rhythm: + tachycardic Gastrointestinal (Abdomen) normal bowel sounds, soft, nontender, no hepatosplenomegaly Skin no rashes, warm and dry Discharge Data Allergies Allergy/AdvReac Type Severity Reaction Status Date / Time house dust Allergy Intermediate CONGESTION Verified 06/01/24 18:22 nettle Allergy Intermediate CONGESTION Verified 06/01/24 18:22 ragweed pollen Allergy Intermediate CONGESTION Verified 06/01/24 18:22 Consultations 06/01/24 19:12 ED Decision to Admit Stat 06/02/24 07:06 Consult Gynecology Routine Hospital Course (1) Vaginal bleeding: (2) Constipation: (3) HTN (hypertension): (4) GERD (gastroesophageal reflux disease): (5) Acute posthemorrhagic anemia: Plan Patient is a 48 yo F w/ a PMHx of recent PE Dx (05/16), PCOS, GERD, anxiety, constipation, HTN, HLD, l. elbow tendonitis, trigger ring finger of l. hand, chronic sinusitis who presented due to concerns about acute chest pain, fatigue/weakness, and heavy vaginal bleeding. Symptomatic Anemia 2/2 Heavy Vaginal bleeding (resolved) - patient on day 13 of heavy menstrual bleeding - Hgb drop from 11.5 (7/5) to 7.4 (lowest) - SOB, lightheadedness, tachycardia present on admission - Vaginal bleeding had stop after initiation of progestins - Hgb remained stable, no transfusion needed it. Hgb at discharge 8.5 - Histology Specialist consulted, aprec recommendations- * continue norethindrone acetate, 5 mg daily, if heavy bleeding restart again should be switch to Provera taper - Recommended a close follow up with PCP and CBC within a week (order given to patient) Acute chest pain/Recent Hx of PE - HSTrops, 3.9; CXR, no acute findings; EKG pending - continue home Eliquis, 5 mg, PO, BID - Pleuritic Pain secondary to her recent PE GERD - continue PPIs and famotidine HTN - continue amlodipine, 2.5 mg, PO, daily PCOS - continue metformin, 1000 mg, daily Constipation - likely secondary to iron supplementation - continue Miralax, 17 g, PO, daily; senna-docusate, daily Total Time Total Time Spent Total Time Spent (In Minutes): 35 minutes Discharge Plan Discharge Items Patient Disposition: Home - Self-Care Reason For Visit: CHEST PAIN, SOB, MENORRHAGIA Discharge Diagnosis: Menorrhagia Activity: Per Instructions section Non-emergency contact: Primary Care Provider Call non-emergency contact if: you have any medication questions, your symptoms worsen and your pain is unusual for you Follow-up/Referrals: Abdirahman Miller MD [Primary Care Provider] - Diet: Regular Ambulatory Orders: Complete Blood Count no Diff (Timed) Timeframe: 1 Week Location: Determined by Patient Ordered By: Renee Panda Attending Provider Instructions: You were admitted due to symptomatic anemia in the setting of heavy menstrual bleeding. The bleeding had decreased after starting norethindrone 5 mg daily. You Hgb remained stable around 8. We will start you in iron supplementation to help replace the acute iron loss. * It's very important to follow up with your PCP within a week for a repeat of a CBC * Continue your Eliquis 5 mg this blood thinner is treating your pulmonary embol ism. The progesterone should be able to control your heavy uterine bleeding even on Eliquis. * We recommended a close follow up with your Treatment Counselor as well CONTACT YOUR PRIMARY CARE PROVIDER if you experience any of the following: Shortness of breath or difficulty breathing Feeling tired with normal activity or experiencing dizziness or fainting Difficulty following your treatment plan, or difficulty taking medications Your bleeding restart again CALL 911 OR GO TO THE EMERGENCY DEPARTMENT if you experience any of the following: Severe abdominal pain or nausea/vomiting Severe chest pain, or chest pain that radiates (moves) to your jaw or arm Sudden, severe shortness of breath or difficulty breathing Pending Studies at Discharge: No Stand-Alone Forms: [employer], Work/School Release, Smoking Cessation Medications and DC Order Prescriptions: New Eliquis 5 mg Tablet 5 mg PO BID 14 Days Qty: 28 0RF Continued metformin 500 mg tablet extended release 24 hr 1,000 mg PO DAILY Qty: 60 5RF omeprazole 40 mg capsule,delayed release(DR/EC) 40 mg PO DAILY acetaminophen [Tylenol Extra Strength] 500 mg tablet 1,000 mg PO Q8 PRN (Reason: Pain, Moderate) lidocaine 4 % adhesive patch,medicated 1 patch topical DAILY PRN (Reason: Pain) ondansetron HCl 4 mg tablet 4 mg PO Q8 PRN (Reason: Nausea) sennosides-docusate sodium 8.6-50 mg capsule 1 tab-cap PO HS norethindrone acetate 5 mg tablet 5 mg PO QAM [id number]-rb-[id number]-FA-Ca carb-vit K 18 mg iron-400 mcg-500 mg Tablet 1 tab PO DAILY famotidine 40 mg tablet 40 mg PO HS amlodipine 2.5 mg tablet 2.5 mg PO HS polyethylene glycol 3350 [Miralax] 17 gram/dose powder 17 g PO HS Discontinued Eliquis 5 mg tablet 10 mg PO BID Discharge Orders: Discharge Order (Routine); Ordered 06/03/24 Ordered By: Renee Santos Admission Data Admit Date/Time: 06/01/24 19:50 Attending Provider: Jony Singh Admit Provider: Sinhg Leonard Primary Care Provider: Abdirahman Miller V. Other Providers: Yamel Rebolledo; Marilyn Gee; Nga Simmons; Alexandria Gaming; Anaya Mckee; Nancy Galeana; Maury Bob; Catherine Haney; Juan Carlos Ashford; Symone Salgado; Carmen Francois; Kurt Torrez Other Interventions: Discharge Summary Assessment (RN) Last Done: 06/03/24 11:45 Supervising Physician Co-Signing Physician Notes ATTESTATION I also saw the patient and confirmed john portions of the history and exam. I agree with the impression and plan in the resident documentation, and as summarized below. She reports feeling quite fatigued. She does also have some reproducible, anterior chest wall tenderness that she notes with position changes. No additional vaginal bleeding. EXAM 136/85, 85, 16, 36.8, 90% on room air Heart regular rhythm, slightly tachycardic Lungs clear with nonlabored respirations DATA Labs Most recent hemoglobin 8.5; Trending up. Imaging Chest x-ray completed in the emergency department was unremarkable. EKG completed in the emergency department shows sinus tachycardia IMPRESSION & PLAN Abnormal uterine bleeding Acute posthemorrhagic anemia Suspect her fatigue and activity intolerance is secondary to her pulmonary embolism and anemia. Fortunately the bleeding has ceased; Discussed usual time for normalization of blood counts. Discussed gradual return to activity; Work excuse provided. She has good support at home while she recovers. Continue Norethindrone 5 mg daily Continue oral iron supplementation She has PCP follow up tomorrow Pulmonary embolism Resume Eliquis Excellent oxygenation on room air Additional per resident documentation Resident Activity Tracking Resident Involvement: Resident Care Provided Care Provided: Adult Hospital Medicine
--- NOTE | 2024-06-03 08:30 | Gynecologic Progress Note ---
Date of Service June 03, 2024 Assessment & Plan (1) Abnormal uterine bleeding (AUB): Plan: uterine bleeding well controlled on daily dose of 5mg Norethindrone. Per Dr. Torrez's recommendations, if she should start to bleed heavily again, she could be switched to provera taper instead. Admission and Anticipated Discharge Date Admission Date: June 01, 2024 Subjective taking norethindrone daily now- had some mild spotting yesterday but none today. she is able to ambulate to the bathroom without near syncope. she just feels very fatigued. 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 Apparently she has a strong family history for heavy bleeding in the women in her family. her sister is anemic and also has endometriosis. her mother had a hysterectomy at age 51 because of ongoing anemia and menorrhagia. She recalls that her mother would also bleed longer than usual and more briskly if she cut herself. Alisa has routinely had 6 days of bleeding with her periods and always passes some clots. The most recent period,however, on Hunter was substantially heavier and with large clots. Review of Systems Review of Systems: All systems reviewed & are unremarkable except as noted in HPI & below Physical Exam Constitutional: WD/WN, vitals as above Psychiatric: A+Ox3, euthymic affect Results & Data Vital Signs (Past 12 Hours) Vital Signs Temp Pulse Pulse Resp BP Pulse Ox O2 Del Method 06/03/24 07:44 98.2 F 83 16 136/85 98 Room Air 06/03/24 07:44 79 06/03/24 02:39 99.0 F 88 16 109/72 99 Room Air 06/02/24 22:32 98.4 F 86 16 151/82 H 100 Room Air 06/02/24 22:05 91 H PG Care Time/CCT Total # of Minutes Spent Total Time Spent with Patient: Total time spent is greater than 50% in coordination of care (as documented) at patient's floor/unit and/or counseling patient: Coding Level of Care Code 09284 IN/OBS CONSULT LVL 2,35M Diagnoses Abnormal uterine bleeding (AUB) N93.9
[2024-06-03] MEDS: OMEPRAZOLE PO SCH (09:47)
[2024-06-03] MEDS ORDERED: SODIUM CHLORIDE 0.9% 250 ML IV PRN (11:30)
--- NOTE | 2024-06-03 12:31 | Billing Data ---
Date of Service June 01, 2024 Coding Level of Care Code 55569 INT INP/OBS CARE
--- NOTE | 2024-06-03 13:02 | Electrocardiogram Report ---
Test Reason : Blood Pressure : / mmHG Vent. Rate : 090 BPM Atrial Rate : 090 BPM P-R Int : 134 ms QRS Dur : 066 ms QT Int : 348 ms P-R-T Axes : 041 044 026 degrees QTc Int : 425 ms Normal sinus rhythm with sinus arrhythmia Normal ECG When compared with ECG of 23-MAY-2024 16:38, Nonspecific T wave abnormality no longer evident in Anterolateral leads Confirmed by Rell Leone ([id number]) on 06/03/2024 1:02:06 PM Referred By: Abdirahman Santana Confirmed By:Rell Leone
[2024-06-03 13:26] LABS: Hematocrit (blood only) 25.5 % (37.0-47.0); Hemoglobin 8.5 g/dl (12.0-16.0)
[2024-06-03] MEDS: FAMOTIDINE 40 MG TABLET PO ONE (13:45)
--- NOTE | 2024-06-04 12:29 | Electrocardiogram Report ---
Test Reason : Blood Pressure : / mmHG Vent. Rate : 089 BPM Atrial Rate : 089 BPM P-R Int : 164 ms QRS Dur : 082 ms QT Int : 356 ms P-R-T Axes : 030 051 -02 degrees QTc Int : 433 ms Normal sinus rhythm Normal ECG When compared with ECG of 01-JUN-2024 16:06, No significant change was found Confirmed by Rell Leone ([id number]) on 06/04/2024 12:28:47 PM Referred By: Abdirahman Santana Confirmed By:Rell Leone
== END 2024-06-03 14:06 | disposition home or self-care (01) | DRG 760 ==
LOC: ED 15:00 → SUATTDRO 19:50 → EDINP 19:50 → 2N 23:42